=== PATIENT | female | born 1970 | race American Indian/Alaskan Native ===

== ENCOUNTER 2020-06-05 15:09 | Inpatient (IN) | payer OTHER ==
--- NOTE | 2020-06-05 17:50 | Emergency Department Report ---
ED Extremity Problem HPI - General Chief complaint: Extremity Injury, Lower Stated complaint: POSS BLOOD CLOT Time Seen by Provider: 06/05/20 17:01 Source: patient Mode of arrival: Ambulatory Limitations: No Limitations - History of Present Illness Initial comments: This is a 49-year-old female with no prior medical history who presents the ED today complaining of right inner thigh pain that initially began 2 days ago. Patient states over the past 2 days is gotten worse and she has noticed her thigh swelling and pain has worsened. Patient states that she went to urgent care today and was told to come to the ER to be evaluated for possible DVT. Patient denies any recent travel. She denies any injuries MD Complaint: extremity pain, extremity swelling Location: left, lower extremity (thigh) Severity scale (0 -10): 8 - Related Data Allergies Allergy/AdvReac Type Severity Reaction Status Date / Time No Known Allergies Allergy Unverified 06/05/20 15:26 ED Review of Systems ROS: Stated complaint: POSS BLOOD CLOT Other details as noted in HPI Comment: All other systems reviewed and negative ED Past Medical Hx - Past Medical History Previous Medical History?: No - Surgical History Past Surgical History?: No - Social History Smoking Status: Never Smoker Substance Use Type: Alcohol ED Physical Exam - General Limitations: No Limitations General appearance: alert, in no apparent distress - Head Head exam: Present: atraumatic, normocephalic - Eye Eye exam: Present: normal appearance - ENT ENT exam: Present: mucous membranes moist - Neck Neck exam: Present: normal inspection - Respiratory Respiratory exam: Present: normal lung sounds bilaterally. Absent: respiratory distress - Cardiovascular Cardiovascular Exam: Present: regular rate, normal rhythm. Absent: systolic murmur, diastolic murmur, rubs, gallop - GI/Abdominal GI/Abdominal exam: Present: soft, normal bowel sounds - Extremities Exam Extremities exam: Present: normal inspection - Expanded Lower Extremity Exam Left Hip exam: Present: normal inspection, full ROM Upper Leg exam: Present: tenderness (To palpation of the left inner inner thigh), swelling (Noted to the thigh and leg) Knee exam: Present: normal inspection - Back Exam Back exam: Present: normal inspection, full ROM. Absent: tenderness - Neurological Exam Neurological exam: Present: alert, oriented X3 - Psychiatric Psychiatric exam: Present: normal affect, normal mood - Skin Skin exam: Present: warm, dry, intact, normal color. Absent: rash ED Course Vital Signs 06/05/20 15:27 Temperature 98.6 F Pulse Rate 95 H Respiratory 18 Rate Blood Pressure 149/71 O2 Sat by Pulse 100 Oximetry - Reevaluation(s) Reevaluation #1: Patient was reevaluated at this time. Patient still complaining of pain. I discussed her Doppler studies finding with her. Morphine ordered for patient for pain, IVF ordered. CTA ordered and pending 06/05/20 20:43 Reevaluation #2: 06/05/20 21:54 Heparin drip protocol ordered. Admission orders placed. Patient leading to CT scan and then Jose to the [facility] Patient is comfortable laying in the ED bed - Consultations Consultation #1: 06/05/20 21:14 Hospitalist was contacted and made aware of the patient. Patient is to be admitted ED Medical Decision Making - Lab Data Result diagrams: 06/05/20 19:42 06/05/20 19:42 Laboratory Last Values WBC 11.3 K/mm3 (4.5-11.0) H 06/05/20 19:42 RBC 3.43 M/mm3 (3.65-5.03) L 06/05/20 19:42 Hgb 10.0 gm/dl (10.1-14.3) L 06/05/20 19:42 Hct 30.7 % (30.3-42.9) 06/05/20 19:42 MCV 89 fl (79-97) 06/05/20 19:42 MCH 29 pg (28-32) 06/05/20 19:42 MCHC 33 % (30-34) 06/05/20 19:42 RDW 15.7 % (13.2-15.2) H 06/05/20 19:42 Plt Count 185 K/mm3 (140-440) 06/05/20 19:42 Lymph % (Auto) 14.4 % (13.4-35.0) 06/05/20 19:42 Gilpin % (Auto) 9.2 % (0.0-7.3) H 06/05/20 19:42 Eos % (Auto) 2.5 % (0.0-4.3) 06/05/20 19:42 Baso % (Auto) 0.3 % (0.0-1.8) 06/05/20 19:42 Lymph # 1.6 K/mm3 (1.2-5.4) 06/05/20 19:42 Gilpin # 1.0 K/mm3 (0.0-0.8) H 06/05/20 19:42 Eos # 0.3 K/mm3 (0.0-0.4) 06/05/20 19:42 Baso # 0.0 K/mm3 (0.0-0.1) 06/05/20 19:42 Seg Neutrophils % 73.6 % (40.0-70.0) H 06/05/20 19:42 Seg Neutrophils # 8.3 K/mm3 (1.8-7.7) H 06/05/20 19:42 PT 13.4 Sec. (12.2-14.9) 06/05/20 19:42 INR 1.01 (0.87-1.13) 06/05/20 19:42 APTT 27.2 Sec. (24.2-36.6) 06/05/20 19:42 Sodium 136 mmol/L (137-145) L 06/05/20 19:42 Potassium 4.0 mmol/L (3.6-5.0) 06/05/20 19:42 Chloride 99.5 mmol/L (98-107) 06/05/20 19:42 Carbon Dioxide 21 mmol/L (22-30) L 06/05/20 19:42 Anion Gap 20 mmol/L 06/05/20 19:42 BUN 8 mg/dL (7-17) 06/05/20 19:42 Creatinine 0.8 mg/dL (0.6-1.2) 06/05/20 19:42 Estimated GFR > 60 ml/min 06/05/20 19:42 BUN/Creatinine Ratio 10 % 06/05/20 19:42 Glucose 113 mg/dL (65-100) H 06/05/20 19:42 Calcium 9.4 mg/dL (8.4-10.2) 06/05/20 19:42 Total Bilirubin 0.60 mg/dL (0.1-1.2) 06/05/20 19:42 AST 54 units/L (5-40) H 06/05/20 19:42 ALT 36 units/L (7-56) 06/05/20 19:42 Alkaline Phosphatase 117 units/L (35-129) 06/05/20 19:42 Total Protein 8.1 g/dL (6.3-8.2) 06/05/20 19:42 Albumin 4.0 g/dL (3.9-5) 06/05/20 19:42 Albumin/Globulin Ratio 1.0 % 06/05/20 19:42 - Radiology Data Radiology results: report reviewed, image reviewed Ordering Physician: DELONTE BAÑUELOS Date of Service: 06/05/20 Procedure(s): VL venous duplex LE LT Accession Number(s): [id number] cc: DELONTE BAÑUELOS DUPLEX DOPPLER LOWER EXTREMITY VEINS, LEFT INDICATION: pain /swelling thigh. Left thigh pain and swelling TECHNIQUE: Duplex doppler imaging was performed through the veins of the left lower extremity using venous compression and other maneuvers. COMPARISON: None available. FINDINGS: Common Femoral vein: Positive. Thrombus appears to extend into the distal left external iliac vein. Superficial Femoral vein: Negative. Popliteal vein: Negative. Calf veins: Negative. Additional findings: Mild subcutaneous edema.. IMPRESSION: Acute DVT identified within the distal left external iliac vein into the left common femoral vein. Signer Name: Jovanni Flores MD Signed: 06/05/2020 7:14 PM Workstation Name: [id number] Transcribed By: Dictated By: Jovanni Flores MD Electronically Authenticated By: Jovanni Flores MD Signed Date/Time: 06/05/201913 Critical care attestation.: If time is entered above; I have spent that time in minutes in the direct care of this critically ill patient, excluding procedure time. ED Disposition Clinical Impression: Acute DVT (deep venous thrombosis), Deep vein thrombosis of iliac vein of left lower extremity Disposition: OP ADMIT IP TO THIS HOSP Is pt being admited?: Yes Does the pt Need Aspirin: No Condition: Stable Referrals: PRIMARY CARE, [Primary Care Provider] - 3-5 Days
--- NOTE | 2020-06-05 19:18 | Vascular Lab Report ---
DUPLEX DOPPLER LOWER EXTREMITY VEINS, LEFT INDICATION: pain /swelling thigh. Left thigh pain and swelling TECHNIQUE: Duplex doppler imaging was performed through the veins of the left lower extremity using venous compr ession and other maneuvers. COMPARISON: None available. FINDINGS: Common Femoral vein: Positive. Thrombus appears to extend into the distal left external iliac vein. Superficial Femoral vein: Negative. Popliteal vein: Negative. Calf veins: Negative. Additional findings: Mild subcutaneous edema.. IMPRESSION: Acute DVT identified within the distal left external iliac vein into the left common femoral vein. Signer Name: Jovanni Flores MD Signed: 06/05/2020 7:14 PM Workstation Name: [id number]
[2020-06-05 20:11] LABS: Basophils % (Auto) 0.3 % (0.0-1.8); Eosinophils # (Auto) 0.3 K/mm3 (0.0-0.4); Eosinophils % (Auto) 2.5 % (0.0-4.3); Hematocrit 30.7 % (30.3-42.9); Lymphocytes # (Auto) 1.6 K/mm3 (1.2-5.4); Lymphocytes % (Auto) 14.4 % (13.4-35.0); Mean Corpuscular HGB Conc 33 % (30-34); Mean Corpuscular Volume 89 fl (79-97); Monocytes % (Auto) 9.2 % (0.0-7.3); Platelet Count 185 K/mm3 (140-440); Red Blood Count 3.43 M/mm3 (3.65-5.03); Red Cell Distribution Width 15.7 % (13.2-15.2)
[2020-06-05] MEDS ORDERED: MORPHINE 2 MG/1 ML INJ IV ONE (20:15)
[2020-06-05 20:21] LABS: INR 1.01 (0.87-1.13)
[2020-06-05 20:22] LABS: Partial Thromboplastin Time 27.2 Sec. (24.2-36.6)
[2020-06-05 20:35] LABS: Alanine Aminotransferase 36 units/L (7-56); BUN/Creatinine Ratio 10; Blood Urea Nitrogen 8 mg/dL (7-17); Calcium 9.4 mg/dL (8.4-10.2); Hemolysis Index 20
[2020-06-05] MEDS ORDERED: SODIUM CHLORIDE 0.9% 1000 ML 1,000 ML IV ONE (21:12)
[2020-06-05] MEDS ORDERED: HEPARIN 10,000 UNITS/10 ML VIAL IV ONE (21:49)
[2020-06-05] MEDS ORDERED: ACETAMINOPHEN 325 MG TAB PO PRN (22:10)
[2020-06-05] MEDS ORDERED: MAGNESIUM HYDROXIDE (MOM) ORAL LIQD UDC PO PRN (22:10)
[2020-06-05] MEDS ORDERED: ONDANSETRON 4 MG/2 ML INJ IV PRN (22:10)
--- NOTE | 2020-06-05 22:23 | History and Physical Report ---
History of Present Illness Date of examination: 06/05/20 Date of admission: 06/05/20 21:58 Chief complaint: Left thigh pain History of present illness: 49-year-old female with no significant past medical history presents to the emergency room today complaining of left thigh pain which has been ongoing for about 2 days. She denies any fall or trauma to the time. Thigh is gotten swollen and become more painful today and therefore reports to the emergency room. She also indicates that she has had some mild shortness of breath and chest discomfort. She denies any fever or chills, no cough, no nausea vomiting, no headache or dizziness, no hematuria or dysuria. Patient presented to an urgent care facility earlier today and was encouraged to report to the emergency room for further evaluation. She denies any recent travel. 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 Work-up in the emergency room today reveals DVT of the left lower extremity- acute DVT extending from the distal left external iliac vein into the common femoral vein. CT angiogram also reveals pulmonary embolism. She has been started on heparin drip. Past History Past Medical History: No medical history Past Surgical History: No surgical history Social history: alcohol abuse (Occasional Alcohol) Family history: no significant family history Medications and Allergies Allergies Allergy/AdvReac Type Severity Reaction Status Date / Time No Known Allergies Allergy Verified 06/05/20 22:20 Active Meds: Active Medications Acetaminophen (Tylenol) 650 mg PO Q4H PRN PRN Reason: Pain MILD(1-3)/Fever >100.5/ESTRADA Magnesium Hydroxide (Milk Of Magnesia) 30 ml PO Q4H PRN PRN Reason: Constipation Morphine Sulfate (Morphine) 2 mg IV Q4H PRN PRN Reason: Pain, Moderate (4-6) Ondansetron HCl (Zofran) 4 mg IV Q8H PRN PRN Reason: Nausea And Vomiting Sodium Chloride (Sodium Chloride Flush Syringe 10 Ml) 10 ml IV BID DIMITRIOS Sodium Chloride (Sodium Chloride Flush Syringe 10 Ml) 10 ml IV PRN PRN PRN Reason: LINE FLUSH Review of Systems Constitutional: no fever, no chills Ears, nose, mouth and throat: no nasal congestion, no sore throat Cardiovascular: no chest pain, no palpitations Respiratory: no cough, no shortness of breath Gastrointestinal: no abdominal pain, no nausea, no vomiting, no diarrhea Genitourinary Female: no pelvic pain, no flank pain, no dysuria Musculoskeletal: no neck pain, no low back pain Integumentary: no rash, no pruritis Neurological: no headaches, no confusion Psychiatric: no anxiety, no confusion Exam - Constitutional Vitals: Temp Pulse Resp BP Pulse Ox 98.6 F 95 H 18 149/71 100 06/05/20 15:27 06/05/20 15:27 06/05/20 15:27 06/05/20 15:27 06/05/20 15:27 General appearance: Present: no acute distress, well-nourished - EENT Eyes: Present: PERRL, EOM intact. Absent: scleral icterus ENT: hearing intact, clear oral mucosa, dentition normal - Neck Neck: Present: supple, normal ROM - Respiratory Respiratory effort: normal Respiratory: bilateral: CTA - Cardiovascular Rhythm: regular Heart Sounds: Present: S1 & S2. Absent: gallop, systolic murmur, diastolic murmur, rub - Extremities Extremities: no ischemia, pulses intact, pulses symmetrical, No edema, Full ROM Peripheral Pulses: within normal limits - Abdominal General gastrointestinal: Present: soft, non-tender, non-distended, normal bowel sounds. Absent: mass - Integumentary Integumentary: Present: clear, warm, dry - Musculoskeletal Musculoskeletal: strength equal bilaterally, other (Left medial thigh tenderness with mild swelling) - Psychiatric Psychiatric: appropriate mood/affect, intact judgment & insight, memory intact, cooperative - Neurologic Neurologic: CNII-XII intact, no focal deficits, moves all extremities Results - Labs CBC & Chem 7: 06/05/20 22:27 06/05/20 19:42 Labs: Abnormal lab results 06/05/20 06/05/20 Range/Units 19:42 19:42 WBC 11.3 H (4.5-11.0) K/mm3 RBC 3.43 L (3.65-5.03) M/mm3 Hgb 10.0 L (10.1-14.3) gm/dl RDW 15.7 H (13.2-15.2) % Whitman % (Auto) 9.2 H (0.0-7.3) % Whitman # 1.0 H (0.0-0.8) K/mm3 Seg Neutrophils % 73.6 H (40.0-70.0) % Seg Neutrophils # 8.3 H (1.8-7.7) K/mm3 Sodium 136 L (137-145) mmol/L Carbon Dioxide 21 L (22-30) mmol/L Glucose 113 H (65-100) mg/dL AST 54 H (5-40) units/L Assessment and Plan - Patient Problems (1) Deep vein thrombosis of iliac vein of left lower extremity Current Visit: Yes Status: Acute (2) Full code status Current Visit: Yes Status: Acute
[2020-06-05 22:52] LABS: Hematocrit 30.2 % (30.3-42.9); Hemoglobin 9.6 gm/dl (10.1-14.3)
[2020-06-05 23:15] LABS: INR 1.07 (0.87-1.13)
[2020-06-05 23:16] LABS: Partial Thromboplastin Time 25.3 Sec. (24.2-36.6)
--- NOTE | 2020-06-05 23:26 | Cat Scan Report ---
CTA ABDOMEN, PELVIS, AND LOWER EXTREMITIES INDICATION / CLINICAL INFORMATION: Follow-up DVT seen on ultrasound. TECHNIQUE: Axial CT images were obtained through the abdomen, pelvis and lower extremities after injection of IV contrast. 3 plane MIP / 3D reconstructions were produced. All CT scans at this location are performe d using CT dose reduction for ALARA by means of automated exposure control. COMPARISON: None available. FINDINGS: CTA ABDOMEN: Abdominal Aorta: No significant abnormality. Celiac Artery: No significant abnormality. Superior Mesenteric Artery: No significant abnormality. Right Renal Artery: No significant abnormality. Left Renal Artery: No significant abnormality. Inferior Mesenteric Artery: No significant abnormality. CTA PELVIS: RIGHT: - Common Iliac Artery: No significant abnormality. - Internal Iliac Artery: No significant abnormality. - External Iliac Artery: No significant abnormality. LEFT: - Common Iliac Artery: No significant abnormality. - Internal Iliac Artery: No significant abnormality. - External Iliac Artery: No significant abnormality. CTA LOWER EXTREMITIES: RIGHT LOWER EXTREMITY: - Common Femoral Artery: No significant abnormality. - Superficial Femoral Artery: No significant abnormality. - Profunda Femoral Artery: No significant abnormality. - Popliteal Artery: No significant abnormality. - Anterior Tibial Artery: No significant abnormality. - Tibioperoneal Trunk: No significant abnormality. - Posterior Tibial Artery: No significant abnormality. - Peroneal Artery: No significant abnormality. - Ankle runoff: Three vessel. LEFT LOWER EXTREMITY: - Common Femoral Artery: No significant abnormality. - Superficial Femoral Artery: No significant abnormality. - Profunda Femoral Artery: No significant abnormality. - Popliteal Artery: No significant abnormality. - Anterior Tibial Artery: No significant abnormality. - Tibioperoneal Trunk: No significant abnormality. - Posterior Tibial Artery: No significant abnormality. - Peroneal Artery: No significant abnormality. - Ankle runoff: Three vessel. NONTARGET STRUCTURES: ABDOMEN:No significant abnormality. PELVIS:Markedly enlarged uterus most consistent with uterine fibroids LOWER EXTREMITIES:Marked edema of the left lower extremity is present. SKELETAL: No significant abnormality. ADDITIONAL FINDINGS: Marked edema of the left external iliac vein and left common femoral vein IMPRESSION: 1. Normal abdominal aorta and runoff as noted 2. Marked edema left external iliac vein and left common femoral vein consistent with deep venous thr ombosis as demonstrated on the previous ultrasound 3. Markedly enlarged uterus Signer Name: Tyler Dixon MD Signed: 06/05/2020 11:21 PM Workstation Name: [id number]
--- NOTE | 2020-06-05 23:32 | Cat Scan Report ---
CTA CHEST WITH IV CONTRAST INDICATION / CLINICAL INFORMATION: P.E. PROTOCOL!!! Patient is positive for a DVT.. TECHNIQUE: Axial CT images were obtained through the chest after injection of 134 cc of Omnipaque 350 milligram percent IV contrast. 3 plane MIP and/or 3D reconstructions were produced. All CT scans at this locati on are performed using CT dose reduction for ALARA by means of automated exposure control. COMPARISON: None available. FINDINGS: PULMONARY ARTERIES: Filling defects present lingular segment left upper lobe as well as right lower l obe. THORACIC AORTA: No significant abnormality. HEART: No significant abnormality. CORONARY ARTERIES: No significant calcification. PLEURA: No pleural effusion. No pneumothorax. LYMPH NODES: No significant adenopathy. LUNGS: Minimum patchy parenchymal changes peripheral aspect right upper lobe ADDITIONAL FINDINGS: Fluid-filled esophagus is present SKELETAL STRUCTURES: No significant osseous abnormality. IMPRESSION: 1. Pulmonary embolic disease as noted. 2. Minimum parenchymal changes right upper lobe, atelectasis is a concern CRITICAL RESULT: Time of Discovery: 2210 hours Time of Communication: 2230 hours Licensed Practitioner Receiving Report: Luis MARTEL was notified of these findings personally by Dr. Dixon Read Back Performed: Yes. Signer Name: Tyler Dixon MD Signed: 06/05/2020 11:28 PM Workstation Name: [id number]
[2020-06-06] MEDS ORDERED: ONDANSETRON 4 MG/2 ML INJ ONE (00:43)
[2020-06-06] MEDS ORDERED: MORPHINE 2 MG/1 ML INJ ONE (00:44)
[2020-06-06] MEDS: MORPHINE 2 MG/1 ML INJ IV PRN ×4 (00:45→13:29)
[2020-06-06] MEDS ORDERED: HEPARIN 5,000 UNIT/1 ML VIAL ONE (00:51)
[2020-06-06 06:26] LABS: Basophils % (Auto) 0.3 % (0.0-1.8); Eosinophils # (Auto) 0.3 K/mm3 (0.0-0.4); Eosinophils % (Auto) 2.4 % (0.0-4.3); Hematocrit 27.6 % (30.3-42.9); Hemoglobin 8.8 gm/dl (10.1-14.3); Lymphocytes # (Auto) 1.8 K/mm3 (1.2-5.4); Lymphocytes % (Auto) 15.7 % (13.4-35.0); Mean Corpuscular HGB Conc 32 % (30-34); Mean Corpuscular Volume 89 fl (79-97); Monocytes # (Auto) 1.1 K/mm3 (0.0-0.8); Monocytes % (Auto) 9.3 % (0.0-7.3); Platelet Count 171 K/mm3 (140-440); Red Blood Count 3.08 M/mm3 (3.65-5.03); Red Cell Distribution Width 15.5 % (13.2-15.2)
[2020-06-06 06:37] LABS: INR 1.13 (0.87-1.13)
[2020-06-06 06:42] LABS: BUN/Creatinine Ratio 8; Blood Urea Nitrogen 6 mg/dL (7-17); Calcium 8.7 mg/dL (8.4-10.2); Hemolysis Index 3
[2020-06-06] MEDS: HEPARIN/ 0.45% NACL DRIP 25,000 UNIT/500 ML BAG IV SCH (11:12)
--- NOTE | 2020-06-06 17:14 | Consultation ---
History of Present Illness - Reason for Consult Consult date: 06/06/20 Left Lower Extremity DVT with PE Requesting physician: JOY PRIDE - History of Present Illness The patient is a 49-year-old female who states that Tuesday of this week she was performing jumping jacks as part of a jumping amira challenge when she noted pain in her left leg that she attributed to a possible pulled muscle. She states that she went to work later that day however when she woke up Tuesday she was experiencing worse pain and noticed some swelling. She states the pain worsened as well as the swelling and what her sister, who is a critical care physician manufacturing assistant, saw her on Tuesday she suggested that she present to the emergency department. The patient presented to the emergency department on with severe swelling and pain of the left lower extremity and was found to have a DVT of the left lower extremity as well as bilateral pulmonary emboli in the segmental branches. The left lower extremity duplex suggests that the DVT involves the external iliac vein as well as the common femoral vein and superficial femoral vein. There is also thrombus at the saphenofemoral junction as well as the saphenous popliteal junction. This was suggested the thrombus is likely in the popliteal vein and possibly the tibial veins however the energy and conservation technician suggest that the study was technically difficult likely secondary to the amount of edema from the patient's extensive DVT. The patient complains of continued pain and swelling despite elevation here in the hospital. She denies any shortness of breath or chest pain. She denies any history of clots, miscarriages, recent weight loss, or prolonged travel or bedrest. She denies any history of hematemesis, hemoptysis, melena, or bright red blood per rectum. She does have heavy menstrual bleeding secondary to a history of uterine fibroids and takes iron on a daily basis to treat her chronic anemia. She has no additional complaints at this time. Past History Past Medical History: No medical history, other (Uterine fibroids) Past Surgical History: No surgical history Social history: alcohol abuse (Occasional Alcohol) Family history: no significant family history Medications and Allergies Allergies Allergy/AdvReac Type Severity Reaction Status Date / Time No Known Allergies Allergy Verified 06/05/20 22:20 Active Meds: Active Medications Acetaminophen (Tylenol) 650 mg PO Q4H PRN PRN Reason: Pain MILD(1-3)/Fever >100.5/ESTRADA Heparin Sodium/Sodium Chloride (Heparin/ 0.45% Nacl-25,000 Unit/500 Ml) 25,000 unit in 500 mls @ 23 mls/hr IV TITR DIMITRIOS; Protocol Last Admin: 06/06/20 11:12 Dose: 1,150 units/hr, 23 mls/hr Documented by: Magnesium Hydroxide (Milk Of Magnesia) 30 ml PO Q4H PRN PRN Reason: Constipation Morphine Sulfate (Morphine) 2 mg IV Q4H PRN PRN Reason: Pain, Moderate (4-6) Last Admin: 06/06/20 13:29 Dose: 2 mg Documented by: Ondansetron HCl (Zofran) 4 mg IV Q8H PRN PRN Reason: Nausea And Vomiting Last Admin: 06/06/20 00:45 Dose: 4 mg Documented by: Sodium Chloride (Sodium Chloride Flush Syringe 10 Ml) 10 ml IV BID DIMITRIOS Last Admin: 06/06/20 11:14 Dose: 10 ml Documented by: Sodium Chloride (Sodium Chloride Flush Syringe 10 Ml) 10 ml IV PRN PRN PRN Reason: LINE FLUSH Review of Systems All systems: negative Exam - Constitutional Vitals: Temp Pulse Resp BP Pulse Ox 98.2 F 84 16 116/62 98 06/06/20 11:40 06/06/20 11:40 06/06/20 11:40 06/06/20 11:40 06/06/20 11:40 General appearance: Present: no acute distress - Neck Neck: Present: supple - Respiratory Respiratory effort: normal - Cardiovascular Rhythm: regular - Extremities Extremities: no ischemia, pulses intact Extremity abnormal: edema (Left lower extremity extending from the foot to the thigh) - Abdominal General gastrointestinal: Present: soft, non-tender, non-distended - Rectal Rectal Exam: deferred Results - Labs CBC & Chem 7: 06/06/20 05:42 06/06/20 05:42 Labs: Abnormal lab results 06/05/20 06/05/20 06/05/20 Range/Units 19:42 19:42 22:27 WBC 11.3 H (4.5-11.0) K/mm3 RBC 3.43 L (3.65-5.03) M/mm3 Hgb 10.0 L 9.6 L (10.1-14.3) gm/dl Hct 30.2 L (30.3-42.9) % RDW 15.7 H (13.2-15.2) % Ada % (Auto) 9.2 H (0.0-7.3) % Ada # 1.0 H (0.0-0.8) K/mm3 Seg Neutrophils % 73.6 H (40.0-70.0) % Seg Neutrophils # 8.3 H (1.8-7.7) K/mm3 Sodium 136 L (137-145) mmol/L Carbon Dioxide 21 L (22-30) mmol/L BUN (7-17) mg/dL Glucose 113 H (65-100) mg/dL AST 54 H (5-40) units/L 06/06/20 06/06/20 Range/Units 05:42 05:42 WBC 11.7 H (4.5-11.0) K/mm3 RBC 3.08 L (3.65-5.03) M/mm3 Hgb 8.8 L (10.1-14.3) gm/dl Hct 27.6 L (30.3-42.9) % RDW 15.5 H (13.2-15.2) % Ada % (Auto) 9.3 H (0.0-7.3) % Ada # 1.1 H (0.0-0.8) K/mm3 Seg Neutrophils % 72.3 H (40.0-70.0) % Seg Neutrophils # 8.4 H (1.8-7.7) K/mm3 Sodium 136 L (137-145) mmol/L Carbon Dioxide 21 L (22-30) mmol/L BUN 6 L (7-17) mg/dL Glucose 124 H (65-100) mg/dL AST (5-40) units/L - Imaging and Cardiology CT scan - chest: image reviewed CT scan - pelvis: image reviewed US - abdomen: image reviewed Venous US: image reviewed Assessment and Plan The patient is a 49-year-old female with bilateral pulmonary emboli and an extensive left lower extremity DVT. She has significant swelling and pain despite anticoagulation elevation of the leg. It is unlikely that this will improve significantly with anticoagulation and prolonged elevation. I believe the patient has more thrombus then was identified on the study. I believe the patient with benefit from percutaneous mechanical thrombectomy of her left lower extremity and possibly stenting of the left iliac vein as this may be secondary to May Thurner syndrome. She would also require placement of an inferior vena cava filter prior to performing the thrombectomy to prevent pulmonary emboli during the procedure. This will be retrieved within 2 to 3 months of placement. Additionally given the bilateral pulmonary emboli she requires a minimum of 6 months of anticoagulation likely with DOAC such as Eliquis. I discussed the findings and plan with the patient as well as her sister (by phone) who expressed understanding and have agreed to proceed.
--- NOTE | 2020-06-06 18:12 | Progress Note ---
Assessment and Plan - Patient Problems (1) Acute DVT (deep venous thrombosis) Current Visit: Yes Status: Acute Plan to address problem: Patient with acute extensive DVT. Unlikely to heal from anticoagulation and elevation. Consult vascular for possible thrombectomy. Continue aggressive pain control elevation. Continue heparin drip pending vascular intervention. Patient denies strong family history of DVT or PE. Will still need to be worked up for hypercoagulable state upon discharge. (2) Deep vein thrombosis of iliac vein of left lower extremity Current Visit: Yes Status: Acute (3) Full code status Current Visit: Yes Status: Acute (4) Pulmonary embolism Current Visit: Yes Status: Acute Plan to address problem: Patient with bilateral pulmonary embolism. Secondary to DVT. Continue heparin drip. Upon discharge will change patient to Eliquis with follow-up CT angiogram 6 months then a year if requires continued treatment. Subjective Date of service: 06/06/20 Principal diagnosis: Pulmonary embolism DVT. Interval history: Patient 49-year-old female who presents with left thigh pain x2 days. Patient had painful swelling left thigh presented with shortness of breath work-up found patient to have extensive DVT in left lower extremity. From the distal iliac to common femoral vein. Patient placed on heparin drip. This morning patient still has significant left thigh pain. Objective - Constitutional Vitals: Vital Signs - 12hr 06/06/20 06/06/20 11:40 16:04 Temperature 98.2 F 101.2 F H Pulse Rate 84 98 H Respiratory 16 16 Rate Blood Pressure 116/62 119/65 O2 Sat by Pulse 98 99 Oximetry General appearance: Present: no acute distress, well-nourished - EENT Eyes: PERRL, EOM intact ENT: hearing intact, clear oral mucosa Ears: bilateral: normal - Neck Neck: supple, normal ROM - Respiratory Respiratory effort: normal Respiratory: bilateral: CTA - Breasts Breasts: normal - Cardiovascular Rhythm: regular Heart Sounds: Present: S1 & S2. Absent: gallop, rub Extremities: pulses intact, No edema, normal color, Full ROM Extremity abnormal: other (Left thigh edematous firm painful to palpation. Almost twice the size as the other thigh.) - Gastrointestinal General gastrointestinal: Present: soft, non-tender, non-distended, normal bowel sounds - Genitourinary Female genitourinary: normal - Integumentary Integumentary: clear, warm, dry - Musculoskeletal Musculoskeletal: 1, strength equal bilaterally - Neurologic Neurologic: moves all extremities - Psychiatric Psychiatric: memory intact, appropriate mood/affect, intact judgment & insight - Labs CBC & Chem 7: 06/06/20 05:42 06/06/20 05:42 Labs: Abnormal lab results 06/05/20 06/05/20 06/05/20 Range/Units 19:42 19:42 22:27 WBC 11.3 H (4.5-11.0) K/mm3 RBC 3.43 L (3.65-5.03) M/mm3 Hgb 10.0 L 9.6 L (10.1-14.3) gm/dl Hct 30.2 L (30.3-42.9) % RDW 15.7 H (13.2-15.2) % [place] % (Auto) 9.2 H (0.0-7.3) % [place] # 1.0 H (0.0-0.8) K/mm3 Seg Neutrophils % 73.6 H (40.0-70.0) % Seg Neutrophils # 8.3 H (1.8-7.7) K/mm3 Sodium 136 L (137-145) mmol/L Carbon Dioxide 21 L (22-30) mmol/L BUN (7-17) mg/dL Glucose 113 H (65-100) mg/dL AST 54 H (5-40) units/L 06/06/20 06/06/20 Range/Units 05:42 05:42 WBC 11.7 H (4.5-11.0) K/mm3 RBC 3.08 L (3.65-5.03) M/mm3 Hgb 8.8 L (10.1-14.3) gm/dl Hct 27.6 L (30.3-42.9) % RDW 15.5 H (13.2-15.2) % [place] % (Auto) 9.3 H (0.0-7.3) % [place] # 1.1 H (0.0-0.8) K/mm3 Seg Neutrophils % 72.3 H (40.0-70.0) % Seg Neutrophils # 8.4 H (1.8-7.7) K/mm3 Sodium 136 L (137-145) mmol/L Carbon Dioxide 21 L (22-30) mmol/L BUN 6 L (7-17) mg/dL Glucose 124 H (65-100) mg/dL AST (5-40) units/L
[2020-06-06] MEDS ORDERED: MORPHINE 4 MG/1 ML INJ IV PRN (18:27)
[2020-06-06] MEDS ORDERED: HEPARIN 10,000 UNITS/10 ML VIAL IV ONE (19:43)
[2020-06-07 02:51] LABS: Hematocrit 28.1 % (30.3-42.9); Hemoglobin 9.1 gm/dl (10.1-14.3)
[2020-06-07] MEDS: HEPARIN/ 0.45% NACL DRIP 25,000 UNIT/500 ML BAG IV SCH (05:51)
--- NOTE | 2020-06-07 09:07 | Progress Note ---
Assessment and Plan - Patient Problems (1) Acute DVT (deep venous thrombosis) Current Visit: Yes Status: Acute Plan to address problem: At present after further review CT scan and consultation with vascular. Appears that large uterine fibroid adjacent to vascular system causing clots from stasis. Clot will be lysed today. Would recommend WEASAND TRIMMER consult for possible hysterectomy and surgical intervention. Appreciate vascular consult. (2) Deep vein thrombosis of iliac vein of left lower extremity Current Visit: Yes Status: Acute (3) Full code status Current Visit: Yes Status: Acute (4) Pulmonary embolism Current Visit: Yes Status: Acute Plan to address problem: Patient with bilateral pulmonary embolism. Secondary to DVT. Continue heparin drip. Upon discharge will change patient to Eliquis with follow-up CT angiogram 6 months then a year if requires continued treatment. (5) Uterine fibroid Current Visit: Yes Status: Acute Plan to address problem: Large uterine fibroid as mentioned CT scan of the abdomen with compression on pelvic vasculature causing clotting. RELIABILITY TECHNOLOGIST consult as previously indicated. Subjective Date of service: 06/07/20 Principal diagnosis: Pulmonary embolism DVT. Interval history: Patient 49-year-old female who presents with left thigh pain x2 days. Patient had painful swelling left thigh presented with shortness of breath work-up found patient to have extensive DVT in left lower extremity. From the distal iliac to common femoral vein. Patient placed on heparin drip. Hospice course complicated by fever of 101 yesterday. Afebrile today denies sick contacts. Also spoke to vascular in detail. After further review of CT scan abdomen it was found that patient's fibroids were present on venous system causing significant clotting. Recommending hysterectomy as well. Scheduled to have lysis of clot today. Objective - Constitutional Vitals: Vital Signs - 12hr 06/06/20 06/07/20 21:38 05:14 Temperature 101.0 F H 98.8 F Pulse Rate 96 H 80 Respiratory 18 18 Rate Blood Pressure 108/58 119/64 O2 Sat by Pulse 94 99 Oximetry General appearance: Present: no acute distress, well-nourished - EENT Eyes: PERRL, EOM intact ENT: hearing intact, clear oral mucosa Ears: bilateral: normal - Neck Neck: supple, normal ROM - Respiratory Respiratory effort: normal Respiratory: bilateral: CTA - Breasts Breasts: normal - Cardiovascular Rhythm: regular Heart Sounds: Present: S1 & S2. Absent: gallop, rub Extremities: pulses intact, No edema, normal color, Full ROM - Gastrointestinal General gastrointestinal: Present: soft, non-tender, non-distended, normal bowel sounds - Genitourinary Female genitourinary: normal - Integumentary Integumentary: clear, warm, dry - Musculoskeletal Musculoskeletal: 1, strength equal bilaterally - Neurologic Neurologic: moves all extremities - Psychiatric Psychiatric: memory intact, appropriate mood/affect, intact judgment & insight - Labs CBC & Chem 7: 06/07/20 02:02 06/06/20 05:42 Labs: Abnormal lab results 06/06/20 06/07/20 06/07/20 Range/Units 18:53 02:02 02:02 Hgb 9.1 L (10.1-14.3) gm/dl Hct 28.1 L (30.3-42.9) % Heparin Anti-Xa Level < 0.10 L 0.25 L (0.3-0.7) U.I./ml
--- NOTE | 2020-06-07 12:47 | Event Note ---
Date: 06/07/20 CTA A/P was reviewed and uterus has multiple fibroids and is significantly enlarged. The uterus is compressing bilateral iliac veins as well as the distal IVC. There are multiple collateral veins throughout the pelvis which suggest this is a chronic compression. I discussed with the patient that she should undergo thrombolysis of her left leg DVT with placement of an IVC filter. She should then have a hysterectomy, to relieve the compression, during this hospitalization, or she will be at risk of rethrombosis. She expressed understanding and wishes to proceed. I contacted Dr. Benny Price and discussed the findings and plan with him as well. He will initiate the consult to FISHERY BIOLOGIST.
[2020-06-07] MEDS ORDERED: SODIUM CHLORIDE 0.9% 1000 ML 1,000 ML SHEATH SCH (13:15)
[2020-06-07] MEDS ORDERED: ACETAMINOPHEN 325 MG TAB PO PRN (13:15)
[2020-06-07] MEDS ORDERED: ONDANSETRON 4 MG/2 ML INJ IV PRN (13:15)
[2020-06-07] MEDS ORDERED: MORPHINE 4 MG/1 ML INJ IV PRN (13:15)
[2020-06-07] MEDS ORDERED: MORPHINE 2 MG/1 ML INJ IV PRN (13:15)
[2020-06-07] MEDS ORDERED: SODIUM CHLORIDE 0.9% 1000 ML 1,000 ML EKOSCLUMEN SCH (13:15)
[2020-06-07] MEDS ORDERED: SODIUM CHLORIDE 0.9% 1000 ML 1,000 ML IV SCH (13:30)
[2020-06-07] MEDS ORDERED: HEPARIN/NS 5000 UNIT/500ML 1,000 ML IR ONE (13:47)
[2020-06-07] MEDS ORDERED: HEPARIN 10,000 UNITS/10 ML VIAL ONE (13:47)
[2020-06-07] MEDS ORDERED: ALTEPLASE 2 MG INJ ONE (13:48)
[2020-06-07] MEDS ORDERED: WATER FOR INJ Sterile (PF) 10 ML ONE (13:48)
[2020-06-07] MEDS ORDERED: HEPARIN/ 0.45% NACL DRIP 25,000 UNIT/500 ML BAG SHEATH SCH (14:00)
[2020-06-07] MEDS ORDERED: ALTEPLASE 20 MG in SODIUM CHLORIDE 0.9% 500 ML 500 ML EKOSDLUMEN SCH (14:00)
[2020-06-07] MEDS ORDERED: SODIUM CHLORIDE 0.9% 500 ML 1,000 ML ONE (14:48)
[2020-06-07] MEDS ORDERED: HEPARIN/ 0.45% NACL DRIP 25,000 UNIT/500 ML BAG ONE (14:48)
--- NOTE | 2020-06-07 14:59 | Event Note ---
Date: 06/07/20 Called regarding paper gluing operator consultation for h/o fibroids this pt and advised she was going into surgery. Chart reviewed. No studies have indicated size of uterus or if fibroids are present. Would recommend pelvic sonogram for this reason as well as to evaluate the endometrial lining as thickness would indicate need for sampling to r/o malignancy. Full consultation to follow after pt seen and evaluated once in room after surgery.
[2020-06-07] MEDS ORDERED: LIDOCAINE (2%) 20 MG/1 ML VIAL 20 ML MDV INFILTRATI ONE (15:02)
[2020-06-07] MEDS: MIDAZOLAM 2 MG/2 ML INJ ONE ×2 (15:11→15:34)
[2020-06-07] MEDS: fentaNYL 100 MCG/2 ML INJ ONE ×2 (15:11→15:34)
[2020-06-07] MEDS ORDERED: MIDAZOLAM 2 MG/2 ML INJ ONE (16:22)
[2020-06-07] MEDS: HYDROmorphone 1 MG/1 ML INJ ONE (16:40)
[2020-06-07 16:58] LABS: INR 1.13 (0.87-1.13)
[2020-06-07 16:59] LABS: Fibrinogen 548 mg/dl (211-480); Partial Thromboplastin Time 37.8 Sec. (24.2-36.6)
--- NOTE | 2020-06-07 17:03 | Operative Report ---
Operative Report Operative Report: Date of Procedure: 06/07/2020 Pre-operative Diagnosis: Extensive Left Lower Extremity DVT Post-operative Diagnosis: Extensive Left Lower Extremity DVT with Extension of Thrombus into the Inferior Vena Cava Procedure(s): 1. Ultrasound-Guided Access Right Internal Jugular Vein 2. Diagnostic Inferior Venacavogram 3. Placement of Maribel Inferior Vena Cava Filter 4. Ultrasound-Guided Access Left Popliteal Vein 5. Diagnostic Left Lower Extremity Venogram 6. Placement of 106 x 50 cm EKOS Thrombolysis Catheter 7. Radiologic Supervision with Interpretation 8. Monitored Moderate Sedation (Total Anesthesia Time: 95 Minutes) Surgeon: Benny Ramirez M.D. Operations Lieutenant: None Anesthesia: 1% Lidocaine/Monitored Moderate Sedation Total Anesthesia Time: 95 Minutes EBL: Minimal Counts: Correct Complications: None Condition: Stable Specimen: None Indication: The patient is a 49-year-old female with a history of uterine fibroids who presented to the emergency department with left leg pain and swelling and was found to have an extensive left lower extremity DVT. She was also found to have multiple bilateral pulmonary emboli. CT scan of her abdomen pelvis revealed that her uterus was significantly enlarged and causing near total compression of the inferior vena cava which is likely the cause of her DVT. She is in need of thrombolysis of her left lower extremity to relieve her symptoms as well as inferior vena cava filter placement during the thrombolysis as well as for potential hysterectomy. She has been given the risk, benefits, and alternative procedures and consented to the procedure. Angiographic Findings: The inferior venacavogram revealed thrombus within the inferior vena cava extending to the level of L2. The IVC filter was placed at the level of L1 with slight anterior tilt likely secondary to distal thrombus however the filter did appear to fully deploy. The left lower extremity venogram revealed thrombus within the popliteal vein extending through the superficial femoral vein however this thrombus was not completely occlusive. There was occlusive thrombus within the common femoral vein. There was occlusive thrombus within the external iliac and common iliac vein which extended into the inferior vena cava. The treatment zone of the EKOS thrombolysis catheter extended from the distal popliteal vein to the distal inferior vena cava. Description of Procedure: The patient was brought into the cardiac cath technician and laid in supine position, after adequate sedation the patient was prepped and draped in normal sterile fashion. Ultrasound was used to identify the right common femoral vein and the overlying skin and soft tissue was anesthetized with lidocaine. A small stab incision was made and the 21-gauge micropuncture needle was used with ultrasound guidance to enter the right internal jugular vein. An 035 J-wire was advanced into the inferior vena cava under fluoroscopic guidance and a 5 [place] sheath was placed by Seldinger technique. A 5 [place] vertebral catheter was advanced into the mid inferior vena cava however due to the compression of the uterus and distal thrombus I was unable to advance the catheter any further. I performed a venogram, with a hand-injection, with the previously described findings. I reinserted the wire and remove the vertebral catheter leaving the wire in place. The filter delivery sheath was advanced, by Seldinger technique, into the inferior vena cava ensuring that it was below the level of the thrombus. The filter was then inserted and positioned proximal to the level of the thrombus. The delivery sheath was withdrawn deploying the filter in place at the body of L1, above the level of the thrombus and with slight anterior tilt. I removed the delivery sheath and manual pressure was held on the neck incision until hemostasis was achieved. The neck incision was then dressed with Dermabond. The patient was then moved back to her hospital bed and then flipped into prone position. Her left popliteal fossa was then prepped and draped in normal sterile fashion. Ultrasound was used to identify the left popliteal vein and then the overlying skin and soft tissue was anesthetized with lidocaine. An 11 blade was used to make a small stab incision and then a 21-gauge micropuncture needle was used with ultrasound guidance to enter the left popliteal vein. A 0.018 micropuncture wire was advanced to the vein and after removing the needle the micropuncture sheath was advanced into the vein by Seldinger technique. I removed the wire and inner dilator and then advanced a 0.035 J-wire into the vein. I removed the micropuncture sheath and inserted a 6 [place] sheath by Seldinger technique. I performed a left lower extremity venogram through the 6 [place] sheath with the previously described findings. I then advanced a vertebral catheter and the J-wire into the left common femoral vein and pe rformed a venogram with the previously described findings. I advanced the catheter and wire into the external iliac vein as well as the left common iliac vein and performed additional venograms with the previously described findings. I then advanced the J-wire into the inferior vena cava and remove the vertebral catheter. I advanced the EKOS thrombolysis catheter into the distal inferior vena cava by Seldinger technique. I removed the J-wire and then inserted the ultrasound catheter. I then primed the drug port with 4 mg of TPA and primed the coolant port with 3000 units of heparin as well as priming the sheath with 2000 units of heparin. I secured the sheath and catheter in position with a 0 silk stitch and then dressed the catheter and sheath with sterile dressings. The patient tolerated the procedure well. All counts were correct. The patient was taken to the intensive care unit in stable condition.
--- NOTE | 2020-06-07 20:01 | Consultation ---
History of Present Illness Consult date: 06/07/20 Requesting physician: JOY PRIDE Reason for consult: menorrhagia, other (fibroid uterus) History of present illness: Pt is a 49 y/o admitted and diagnosed with bilaterial PE and extensive lower ext DVT. Pt was noted on CT studies to have an enlarged uterus and paintings conservator was consulted for evaluation as she had given h/o fibroids and heavy periods. Pt states she was first told she had fibroid last year at her annual exam( she could not remember the provider) but state she was sure the fibroids were not as large as they are now. She was treated with blood transfusion and a Bejou Henary last month or month prior and states she did have a sonogram at this time as well as a blood transfusion. Review of sonogram done at [facility] on 01/26/2020 was read as uterus measuring 16.8x9.5x14.7cm with multiple fibroids noted and largest measuring 7.1x7.9x7.6cm and 4.2x4.9x4.7 cm).The endometrial stripe was not seen due to the fibroids being present and MRI was recommended. Pt underwent CT of abdomen and pelvis without contrast on 01/26/2020 and it was read as follows: "markedly enlarged lobulated uteruts presumbly fibroid uterus extending to the abdomen. Lieomyosarcoma cannot be excluded in this unenhanced study." When discharged she was to f/u with paintings conservator outpatient. Pt states that she did not f/u with paintings conservator due to having no coverage at this time. States menses was last week and was heavy as usual but that she also has spotting after period has ended which she has now. States periods have always been heavy and that she has not noticed a change in the flow over the last year except the spotting that after the menstrual period has ended. I d/w that the rapid growth of the fibroids, as per her history as there are not studies for comparison, and the intermenstrual spotting given her age are co ncerning and that an evaluation of both the cervix(via a pap to r/o cervical cancer/ dysplasia) and sampling of the endometrium to r/o endometrial cancer are needed prior to removal of the uterus to be sure the appropriate procedure is performed. I also stressed to pt that an enlarged uterus and fibroids do not usually cause DVTs. Pt does want the uterus removed and has had a BTL and does not want to maintain fertility. I d/w the importance of being sure her paintings conservator evaluation is completed and that she is fully anticoagulated and stable enough to undergo the above stated procedures. She expressed understanding and state no questions at this time.She has not had any prior treatments for the fibroids. Past History Past Medical History: other (fibroid uterus) Past Surgical History: section (times 3), other (BTL) INBOUND CUSTOMER SERVICE AGENT History: other (no abnormal paps as per pt) Medications and Allergies Allergies Allergy/AdvReac Type Severity Reaction Status Date / Time No Known Allergies Allergy Verified 06/05/20 22:20 Active Meds: Active Medications Acetaminophen (Tylenol) 650 mg PO Q6H PRN PRN Reason: Pain, Mild (1-3) Acetaminophen/Hydrocodone Bitart (Norman 5/325) 2 each PO Q6H PRN PRN Reason: Pain, Moderate (4-6) Sodium Chloride (Nacl 0.9% 1000 Ml) 1,000 mls @ 30 mls/hr IV DIRECT DIMITRIOS Last Admin: 06/07/20 15:15 Dose: 200 mls Documented by: Alteplase, Recombinant 20 mg/ (Sodium Chloride) 500 mls @ 25 mls/hr EKOSDLUMEN DIRECT DIMITRIOS Last Admin: 06/07/20 18:20 Dose: 10 mls Documented by: Sodium Chloride (Nacl 0.9% 1000 Ml) 1,000 mls @ 30 mls/hr SHEATH DIRECT DIMITRIOS Sodium Chloride (Nacl 0.9% 1000 Ml) 1,000 mls @ 35 mls/hr EKOSCLUMEN DIRECT DIMITRIOS Last Admin: 06/07/20 18:20 Dose: 15 mls Documented by: Heparin Sodium/Sodium Chloride (Heparin/ 0.45% Nacl-25,000 Unit/500 Ml) 25,000 unit in 500 mls @ 10 mls/hr SHEATH DIRECT DIMITRIOS; Protocol Last Admin: 06/07/20 18:20 Dose: 5 mls Documented by: Magnesium Hydroxide (Milk Of Magnesia) 30 ml PO Q4H PRN PRN Reason: Constipation Morphine Sulfate (Morphine) 4 mg IV Q4H PRN PRN Reason: Pain , Severe (7-10) Morphine Sulfate (Morphine) 2 mg IV Q4H PRN PRN Reason: Pain, Moderate (4-6) Ondansetron HCl (Zofran) 4 mg IV Q8H PRN PRN Reason: Nausea And Vomiting Sodium Chloride (Sodium Chloride Flush Syringe 10 Ml) 10 ml IV BID DIMITRIOS Last Admin: 06/07/20 10:09 Dose: 10 ml Documented by: Sodium Chloride (Sodium Chloride Flush Syringe 10 Ml) 10 ml IV PRN PRN PRN Reason: LINE FLUSH - Vital Signs Vital signs: Vital Signs Temp Pulse Resp BP Pulse Ox 98.6 F 95 H 18 149/71 100 06/05/20 15:27 06/05/20 15:27 06/05/20 15:27 06/05/20 15:27 06/05/20 15:27 Temp Pulse Resp BP Pulse Ox 98.9 F 80 20 122/67 100 06/07/20 19:55 06/07/20 12:59 06/07/20 12:59 06/07/20 12:59 06/07/20 12:59 - Physical Exam Lungs: Positive: Normal air movement Abdomen: Positive: normal appearance, soft, mass (palpated several cm ABOVE the umbilicus extending almost to the xiphoid). Negative: distention, tenderness Genitourinary (Female): Positive: other (deferred as pt is not bleeding and was in pain from procedure performed today ) Results Result Diagrams: 06/07/20 19:24 06/07/20 19:24 Abnormal lab results 06/07/20 06/07/20 06/07/20 Range/Units 02:02 02:02 08:25 Hgb 9.1 L (10.1-14.3) gm/dl Hct 28.1 L (30.3-42.9) % APTT (24.2-36.6) Sec. Fibrinogen (211-480) mg/dl Heparin Anti-Xa Level 0.25 L 0.13 L (0.3-0.7) U.I./ml 06/07/20 Range/Units 15:47 Hgb (10.1-14.3) gm/dl Hct (30.3-42.9) % APTT 37.8 H (24.2-36.6) Sec. Fibrinogen 548 H (211-480) mg/dl Heparin Anti-Xa Level < 0.10 L (0.3-0.7) U.I./ml All other labs normal. Assessment and Plan - Patient Problems (1) Acute DVT (deep venous thrombosis) Current Visit: Yes Status: Acute Plan to address problem: -treatment as per vascular and primary teams (2) Deep vein thrombosis of iliac vein of left lower extremity Current Visit: Yes Status: Acute Plan to address problem: treatmet as per primary and vascular teams (3) Pulmonary embolism Current Visit: Yes Status: Acute Plan to address problem: -treatment as per primary and vascular teams (4) Uterine fibroid Current Visit: Yes Status: Acute Plan to address problem: - I d/w that as per her history seems as if the abdominal mass has enlarged over a short period of time which is not characteristic of normal fibroid which usually grow slowly over time. I d/w that we will need to be sure she does not have a paintings conservator cancer prior to proceeding with any surgical procedure as that diagnosis would dictate which procedure she would need. At this time my recommendations are as follows: -fully anticoagulate and become stable for surgery from a pulmnonary and vascular standpoint -pap is recommended and at best at least a sample of the endmetrium prior to any surgical procedure to evaluated for uterine hyperplasia or malignancy as the endometirial stripe was not clearly seen on previous studies and patient has complaints of intermenstrual bleeding. -The diagnosis of leiomyosarcoma was listed in the differential diagnosis of the CT of abdomen and pelvis done at [facility] 01/2020 and an MRI was recommended at this time but not performed. -I would recommend a gynonc consultation to be sure pt has the optimal plan of care is developed prior to proceeding to surgery and the appropriate procedure can be performed. The uterus today on exam is clearly larger than 16cm which it measured just a few months ago and this is concerning. -Will continue to follow with the teams at this time.
[2020-06-07 20:14] LABS: Basophils # (Auto) 0.1 K/mm3 (0.0-0.1); Basophils % (Auto) 0.6 % (0.0-1.8); Eosinophils # (Auto) 0.3 K/mm3 (0.0-0.4); Eosinophils % (Auto) 1.6 % (0.0-4.3); Lymphocytes # (Auto) 1.6 K/mm3 (1.2-5.4); Lymphocytes % (Auto) 8.6 % (13.4-35.0); Mean Corpuscular HGB Conc 30 % (30-34); Mean Corpuscular Volume 88 fl (79-97); Monocytes # (Auto) 1.4 K/mm3 (0.0-0.8); Monocytes % (Auto) 7.7 % (0.0-7.3); Platelet Count 182 K/mm3 (140-440); Red Blood Count 3.65 M/mm3 (3.65-5.03); Red Cell Distribution Width 15.4 % (13.2-15.2)
[2020-06-07 20:15] LABS: Hematocrit 32.2 % (30.3-42.9); Hemoglobin 9.7 gm/dl (10.1-14.3)
[2020-06-07 20:35] LABS: Blood Urea Nitrogen 9 mg/dL (7-17); Calcium 9.2 mg/dL (8.4-10.2); Hemolysis Index 31
[2020-06-07 20:37] LABS: BUN/Creatinine Ratio 13
[2020-06-08] MEDS: HYDROcodone/ACETAMINOPHEN 5-325 MG TAB PO PRN ×2 (00:31→08:22)
[2020-06-08 01:47] LABS: Basophils % (Auto) 0.3 % (0.0-1.8); Eosinophils # (Auto) 0.1 K/mm3 (0.0-0.4); Hematocrit 27.9 % (30.3-42.9); Hemoglobin 8.9 gm/dl (10.1-14.3); Lymphocytes # (Auto) 1.1 K/mm3 (1.2-5.4); Lymphocytes % (Auto) 8.5 % (13.4-35.0); Mean Corpuscular HGB Conc 32 % (30-34); Mean Corpuscular Volume 89 fl (79-97); Monocytes # (Auto) 0.9 K/mm3 (0.0-0.8); Monocytes % (Auto) 7.1 % (0.0-7.3); Platelet Count 186 K/mm3 (140-440); Red Blood Count 3.12 M/mm3 (3.65-5.03); Red Cell Distribution Width 15.4 % (13.2-15.2)
[2020-06-08 02:38] LABS: Fibrinogen 190 mg/dl (211-480)
[2020-06-08 06:41] LABS: Basophils % (Auto) 0.2 % (0.0-1.8); Eosinophils # (Auto) 0.2 K/mm3 (0.0-0.4); Eosinophils % (Auto) 1.8 % (0.0-4.3); Hematocrit 24.5 % (30.3-42.9); Hemoglobin 7.9 gm/dl (10.1-14.3); Lymphocytes # (Auto) 1.1 K/mm3 (1.2-5.4); Lymphocytes % (Auto) 9.1 % (13.4-35.0); Mean Corpuscular HGB Conc 32 % (30-34); Mean Corpuscular Volume 89 fl (79-97); Monocytes # (Auto) 1.2 K/mm3 (0.0-0.8); Monocytes % (Auto) 9.3 % (0.0-7.3); Platelet Count 179 K/mm3 (140-440); Red Blood Count 2.76 M/mm3 (3.65-5.03); Red Cell Distribution Width 15.1 % (13.2-15.2)
[2020-06-08 07:02] LABS: BUN/Creatinine Ratio 12; Blood Urea Nitrogen 11 mg/dL (7-17); Calcium 8.7 mg/dL (8.4-10.2); Hemolysis Index 0
[2020-06-08 07:20] LABS: Fibrinogen TNR mg/dl (211-480)
--- NOTE | 2020-06-08 11:27 | Consultation ---
History of Present Illness - Reason for Consult Consult date: 06/08/20 Post Op ICU management Requesting physician: JOY RODRIGUEZ - History of Present Illness 49 y/o female with enlarged uterus, causing obstruction of venous drainage now with large DVT in lower ext requiring intervention. Went to woodworking shop laborer on yesterday for EKOS and returned here post-op. Stable overnight, no issues. Past History Past Medical History: No medical history, other (Uterine fibroids) Past Surgical History: No surgical history Social history: alcohol abuse (Occasional Alcohol) Family history: no significant family history Medications and Allergies Allergies Allergy/AdvReac Type Severity Reaction Status Date / Time No Known Allergies Allergy Verified 06/05/20 22:20 Active Meds: Active Medications Acetaminophen (Tylenol) 650 mg PO Q6H PRN PRN Reason: Pain, Mild (1-3) Acetaminophen/Hydrocodone Bitart ([place] 5/325) 2 each PO Q6H PRN PRN Reason: Pain, Moderate (4-6) Last Admin: 06/08/20 08:22 Dose: 2 each Documented by: Sodium Chloride (Nacl 0.9% 1000 Ml) 1,000 mls @ 30 mls/hr IV DIRECT DIMITRIOS Last Admin: 06/07/20 15:15 Dose: 200 mls Documented by: Alteplase, Recombinant 20 mg/ (Sodium Chloride) 500 mls @ 25 mls/hr EKOSDLUMEN DIRECT DIMITRIOS Last Infusion: 06/08/20 03:35 Dose: 12.5 mls/hr Documented by: Sodium Chloride (Nacl 0.9% 1000 Ml) 1,000 mls @ 30 mls/hr SHEATH DIRECT DIMITRIOS Sodium Chloride (Nacl 0.9% 1000 Ml) 1,000 mls @ 35 mls/hr EKOSCLUMEN DIRECT DIMITRIOS Last Admin: 06/07/20 18:20 Dose: 15 mls Documented by: Heparin Sodium/Sodium Chloride (Heparin/ 0.45% Nacl-25,000 Unit/500 Ml) 25,000 unit in 500 mls @ 10 mls/hr SHEATH DIRECT DIMITRIOS; Protocol Last Admin: 06/07/20 18:20 Dose: 5 mls Documented by: Magnesium Hydroxide (Milk Of Magnesia) 30 ml PO Q4H PRN PRN Reason: Constipation Morphine Sulfate (Morphine) 4 mg IV Q4H PRN PRN Reason: Pain , Severe (7-10) Last Admin: 06/07/20 21:01 Dose: 4 mg Documented by: Morphine Sulfate (Morphine) 2 mg IV Q4H PRN PRN Reason: Pain, Moderate (4-6) Ondansetron HCl (Zofran) 4 mg IV Q8H PRN PRN Reason: Nausea And Vomiting Sodium Chloride (Sodium Chloride Flush Syringe 10 Ml) 10 ml IV BID DIMITRIOS Last Admin: 06/07/20 21:00 Dose: 10 ml Documented by: Sodium Chloride (Sodium Chloride Flush Syringe 10 Ml) 10 ml IV PRN PRN PRN Reason: LINE FLUSH Review of Systems All systems: negative Exam - Constitutional Vitals: Temp Pulse Resp BP Pulse Ox 98.6 F 82 21 103/59 100 06/08/20 08:00 06/08/20 09:00 06/08/20 09:00 06/08/20 09:00 06/08/20 09:00 Results - Labs CBC & Chem 7: 06/08/20 06:25 06/08/20 06:25 Labs: Abnormal lab results 06/07/20 06/07/20 06/07/20 Range/Units 15:47 19:24 19:24 WBC 18.5 H (4.5-11.0) K/mm3 RBC (3.65-5.03) M/mm3 Hgb 9.7 L (10.1-14.3) gm/dl Hct (30.3-42.9) % MCH 27 L (28-32) pg RDW 15.4 H (13.2-15.2) % Lymph % (Auto) 8.6 L (13.4-35.0) % [place] % (Auto) 7.7 H (0.0-7.3) % Lymph # (1.2-5.4) K/mm3 [place] # 1.4 H (0.0-0.8) K/mm3 Seg Neutrophils % 81.5 H (40.0-70.0) % Seg Neutrophils # 15.1 H (1.8-7.7) K/mm3 APTT 37.8 H (24.2-36.6) Sec. Fibrinogen 548 H (211-480) mg/dl Heparin Anti-Xa Level < 0.10 L (0.3-0.7) U.I./ml Sodium 130 L (137-145) mmol/L Chloride 97.3 L (98-107) mmol/L Carbon Dioxide 14 L D (22-30) mmol/L Glucose (65-100) mg/dL 06/07/20 06/08/20 06/08/20 Range/Units 19:24 00:52 00:52 WBC 13.4 H (4.5-11.0) K/mm3 RBC 3.12 L (3.65-5.03) M/mm3 Hgb 8.9 L (10.1-14.3) gm/dl Hct 27.9 L (30.3-42.9) % MCH (28-32) pg RDW 15.4 H (13.2-15.2) % Lymph % (Auto) 8.5 L (13.4-35.0) % [place] % (Auto) (0.0-7.3) % Lymph # 1.1 L (1.2-5.4) K/mm3 [place] # 0.9 H (0.0-0.8) K/mm3 Seg Neutrophils % 83.1 H (40.0-70.0) % Seg Neutrophils # 11.1 H (1.8-7.7) K/mm3 APTT (24.2-36.6) Sec. Fibrinogen 574 H 190 L (211-480) mg/dl Heparin Anti-Xa Level 2.00 H < 0.10 L (0.3-0.7) U.I./ml Sodium (137-145) mmol/L Chloride (98-107) mmol/L Carbon Dioxide (22-30) mmol/L Glucose (65-100) mg/dL 06/08/20 06/08/20 06/08/20 Range/Units 06:25 06:25 06:25 WBC 12.4 H (4.5-11.0) K/mm3 RBC 2.76 L (3.65-5.03) M/mm3 Hgb 7.9 L (10.1-14.3) gm/dl Hct 24.5 L (30.3-42.9) % MCH (28-32) pg RDW (13.2-15.2) % Lymph % (Auto) 9.1 L (13.4-35.0) % [place] % (Auto) 9.3 H (0.0-7.3) % Lymph # 1.1 L (1.2-5.4) K/mm3 [place] # 1.2 H (0.0-0.8) K/mm3 Seg Neutrophils % 79.6 H (40.0-70.0) % Seg Neutrophils # 9.9 H (1.8-7.7) K/mm3 APTT (24.2-36.6) Sec. Fibrinogen (211-480) mg/dl Heparin Anti-Xa Level < 0.10 L (0.3-0.7) U.I./ml Sodium 134 L (137-145) mmol/L Chloride (98-107) mmol/L Carbon Dioxide 20 L (22-30) mmol/L Glucose 121 H (65-100) mg/dL - Imaging and Cardiology CT scan - chest: report reviewed, image reviewed Assessment and Plan 49 y/o female with extensive VTE in lungs and limbs, s/p EKOS to lower ext. 1. Pulm- Has VTE, small, and currently stable on room air. There is no contra indication pulmonary bazzi for surgery to remove mass from abdomen pelvis. She is as optimized as she will be from this standpoint. 2. Reviewed the OB note and appreciate their help, however I would not suggest starting oral anticoagulation until a definitive plan is set for her mass. From speaking with vascular, if this is not removed, she will clot off again. If FIELD SERVICE COORDINATOR/ONC is not available here may need to consider transfer as it appears removal of this is the only solution to her lower ext vascular issues. 3. Needs hypercoag work up and age/sex appropriate screening for malignancy. 4. Once catheters are out, stable for transfer out of unit.
--- NOTE | 2020-06-08 11:28 | Progress Note ---
Assessment and Plan - Patient Problems (1) Acute DVT (deep venous thrombosis) Current Visit: Yes Status: Acute Plan to address problem: At present after further review CT scan and consultation with vascular. Appears that large uterine fibroid adjacent to vascular system causing clots from stasis. Patient tolerated surgical intervention with lysis of adhesions. Did well minimal pain. Decreased girth of thigh. Spoke to vascular and pulmonology about timeliness of removing the uterus to prevent additional clotting. (2) Deep vein thrombosis of iliac vein of left lower extremity Current Visit: Yes Status: Acute Plan to address problem: Continue present anticoagulation heparin drip. (3) Full code status Current Visit: Yes Status: Acute (4) Pulmonary embolism Current Visit: Yes Status: Acute Plan to address problem: Patient with bilateral pulmonary embolism. Secondary to DVT. Continue heparin drip. Upon discharge will change patient to Eliquis with follow-up CT angiogram 6 months then a year if requires continued treatment. (5) Uterine fibroid Current Visit: Yes Status: Acute Plan to address problem: Thank you for evaluation from SUBSTANCE ABUSE RN. Recommend SUBSTANCE ABUSE RN ONC consult and full anti coagulation prior to hysterectomy. Subjective Date of service: 06/08/20 Principal diagnosis: Pulmonary embolism DVT. Interval history: Patient 49-year-old female who presents with left thigh pain x2 days. Patient had painful swelling left thigh presented with shortness of breath work-up found patient to have extensive DVT in left lower extremity. From the distal iliac to common femoral vein. Patient placed on heparin drip. Hospice course complicated by fever of 101 yesterday. Afebrile today denies sick contacts. Also spoke to vascular in detail. After further review of CT scan abdomen it was found that patient's fibroids were present on venous system causing significant clotting. Patient doing well after procedure today. Patient's pain and swelling has improved significantly since procedure. Objective - Constitutional Vitals: Vital Signs - 12hr 06/07/20 06/07/20 06/07/20 23:26 23:30 23:46 Temperature 100.2 F H Pulse Rate 86 88 Pulse Rate [ From Monitor] Respiratory 25 H 24 Rate Blood Pressure 113/74 113/74 O2 Sat by Pulse 97 96 Oximetry 06/08/20 06/08/20 06/08/20 00:00 00:15 00:30 Temperature Pulse Rate 93 H 92 H 85 Pulse Rate [ 93 H From Monitor] Respiratory 18 27 H 26 H Rate Blood Pressure 113/74 116/71 119/71 O2 Sat by Pulse 96 100 97 Oximetry 06/08/20 06/08/20 06/08/20 00:45 01:00 01:30 Temperature Pulse Rate 87 91 H 85 Pulse Rate [ From Monitor] Respiratory 21 26 H 23 Rate Blood Pressure 116/71 127/67 116/59 O2 Sat by Pulse 98 98 97 Oximetry 06/08/20 06/08/20 06/08/20 02:00 02:30 03:00 Temperature Pulse Rate 88 88 90 Pulse Rate [ From Monitor] Respiratory 24 22 22 Rate Blood Pressure 105/54 111/60 96/59 O2 Sat by Pulse 97 98 100 Oximetry 06/08/20 06/08/20 06/08/20 03:28 03:30 04:00 Temperature 99.9 F H Pulse Rate 83 88 Pulse Rate [ 93 H From Monitor] Respiratory 19 26 H Rate Blood Pressure 114/59 113/48 O2 Sat by Pulse 100 98 Oximetry 06/08/20 06/08/20 06/08/20 04:30 05:00 05:30 Temperature Pulse Rate 87 89 89 Pulse Rate [ From Monitor] Respiratory 22 22 25 H Rate Blood Pressure 114/59 102/53 109/56 O2 Sat by Pulse 98 99 99 Oximetry 06/08/20 06/08/20 06/08/20 06:00 06:30 07:00 Temperature Pulse Rate 88 93 H 85 Pulse Rate [ From Monitor] Respiratory 23 17 24 Rate Blood Pressure 104/53 99/57 107/59 O2 Sat by Pulse 99 100 98 Oximetry 06/08/20 06/08/20 06/08/20 07:30 08:00 08:30 Temperature 98.6 F Pulse Rate 84 80 81 Pulse Rate [ 93 H From Monitor] Respiratory 19 23 25 H Rate Blood Pressure 97/55 109/62 105/63 O2 Sat by Pulse 100 100 99 Oximetry 06/08/20 09:00 Temperature Pulse Rate 82 Pulse Rate [ From Monitor] Respiratory 21 Rate Blood Pressure 103/59 O2 Sat by Pulse 100 Oximetry General appearance: Present: no acute distress, well-nourished - EENT Eyes: PERRL, EOM intact ENT: hearing intact, clear oral mucosa Ears: bilateral: normal - Neck Neck: supple, normal ROM - Respiratory Respiratory effort: normal Respiratory: bilateral: CTA - Breasts Breasts: normal - Cardiovascular Rhythm: regular Heart Sounds: Present: S1 & S2. Absent: gallop, rub Extremities: pulses intact, No edema, normal color, Full ROM Extremity abnormal: other (Decreased in size left thigh. Also pain has improved.) - Gastrointestinal General gastrointestinal: Present: soft, non-tender, non-distended, normal bowel sounds - Genitourinary Female genitourinary: normal - Integumentary Integumentary: clear, warm, dry - Musculoskeletal Musculoskeletal: 1, strength equal bilaterally - Neurologic Neurologic: moves all extremities - Psychiatric Psychiatric: memory intact, appropriate mood/affect, intact judgment & insight - Labs CBC & Chem 7: 06/08/20 06:25 06/08/20 06:25 Labs: Abnormal lab results 06/07/20 06/07/20 06/07/20 Range/Units 15:47 19:24 19:24 WBC 18.5 H (4.5-11.0) K/mm3 RBC (3.65-5.03) M/mm3 Hgb 9.7 L (10.1-14.3) gm/dl Hct (30.3-42.9) % MCH 27 L (28-32) pg RDW 15.4 H (13.2-15.2) % Lymph % (Auto) 8.6 L (13.4-35.0) % [place] % (Auto) 7.7 H (0.0-7.3) % Lymph # (1.2-5.4) K/mm3 [place] # 1.4 H (0.0-0.8) K/mm3 Seg Neutrophils % 81.5 H (40.0-70.0) % Seg Neutrophils # 15.1 H (1.8-7.7) K/mm3 APTT 37.8 H (24.2-36.6) Sec. Fibrinogen 548 H (211-480) mg/dl Heparin Anti-Xa Level < 0.10 L (0.3-0.7) U.I./ml Sodium 130 L (137-145) mmol/L Chloride 97.3 L (98-107) mmol/L Carbon Dioxide 14 L D (22-30) mmol/L Glucose (65-100) mg/dL 06/07/20 06/08/20 06/08/20 Range/Units 19:24 00:52 00:52 WBC 13.4 H (4.5-11.0) K/mm3 RBC 3.12 L (3.65-5.03) M/mm3 Hgb 8.9 L (10.1-14.3) gm/dl Hct 27.9 L (30.3-42.9) % MCH (28-32) pg RDW 15.4 H (13.2-15.2) % Lymph % (Auto) 8.5 L (13.4-35.0) % [place] % (Auto) (0.0-7.3) % Lymph # 1.1 L (1.2-5.4) K/mm3 [place] # 0.9 H (0.0-0.8) K/mm3 Seg Neutrophils % 83.1 H (40.0-70.0) % Seg Neutrophils # 11.1 H (1.8-7.7) K/mm3 APTT (24.2-36.6) Sec. Fibrinogen 574 H 190 L (211-480) mg/dl Heparin Anti-Xa Level 2.00 H < 0.10 L (0.3-0.7) U.I./ml Sodium (137-145) mmol/L Chloride (98-107) mmol/L Carbon Dioxide (22-30) mmol/L Glucose (65-100) mg/dL 06/08/20 06/08/20 06/08/20 Range/Units 06:25 06:25 06:25 WBC 12.4 H (4.5-11.0) K/mm3 RBC 2.76 L (3.65-5.03) M/mm3 Hgb 7.9 L (10.1-14.3) gm/dl Hct 24.5 L (30.3-42.9) % MCH (28-32) pg RDW (13.2-15.2) % Lymph % (Auto) 9.1 L (13.4-35.0) % [place] % (Auto) 9.3 H (0.0-7.3) % Lymph # 1.1 L (1.2-5.4) K/mm3 [place] # 1.2 H (0.0-0.8) K/mm3 Seg Neutrophils % 79.6 H (40.0-70.0) % Seg Neutrophils # 9.9 H (1.8-7.7) K/mm3 APTT (24.2-36.6) Sec. Fibrinogen (211-480) mg/dl Heparin Anti-Xa Level < 0.10 L (0.3-0.7) U.I./ml Sodium 134 L (137-145) mmol/L Chloride (98-107) mmol/L Carbon Dioxide 20 L (22-30) mmol/L Glucose 121 H (65-100) mg/dL
[2020-06-08 11:46] LABS: Fibrinogen < 60 mg/dl (211-480)
[2020-06-08] MEDS ORDERED: SODIUM CHLORIDE 0.9% 500 ML 500 ML IV ONE (11:54)
--- NOTE | 2020-06-08 12:13 | Event Note ---
Date: 06/08/20 Fibrinogen has dropped to a critically low level. TPA has been stopped at this time. Cryo has been ordered as well as 2 units of PRBC. No obvious signs of bleeding at this time. Hemodynamically stable at this time. Will await products prior to proceeding to the cathlab.
[2020-06-08] MEDS ORDERED: fentaNYL 100 MCG/2 ML INJ ONE (12:39)
[2020-06-08] MEDS ORDERED: HEPARIN/NS 5000 UNIT/500ML 1,000 ML IR ONE (12:40)
[2020-06-08] MEDS ORDERED: SODIUM CHLORIDE 0.9% 500 ML 500 ML ONE ×2 (12:40→17:58)
[2020-06-08] MEDS ORDERED: LIDOCAINE (2%) 20 MG/1 ML VIAL 20 ML MDV INFILTRATI ONE ×2 (12:40→13:32)
[2020-06-08] MEDS: HYDROmorphone 1 MG/1 ML INJ ONE ×4 (14:04→14:45)
[2020-06-08] MEDS: MIDAZOLAM 2 MG/2 ML INJ ONE ×3 (14:04→14:28)
[2020-06-08] MEDS: HEPARIN 10,000 UNITS/10 ML VIAL ONE ×2 (14:28→14:29)
[2020-06-08] MEDS ORDERED: HYDROmorphone 1 MG/1 ML INJ ONE (14:29)
[2020-06-08] MEDS ORDERED: MIDAZOLAM 2 MG/2 ML INJ ONE (14:31)
[2020-06-08] MEDS ORDERED: ONDANSETRON 4 MG/2 ML INJ ONE (14:56)
--- NOTE | 2020-06-08 15:41 | Operative Report ---
Operative Report Operative Report: Date of Procedure: 06/08/2020 Pre-operative Diagnosis: Extensive Left Lower Extremity DVT Status Post Thrombol ysis Post-operative Diagnosis: Same Procedure(s): 1. Removal of Left Lower Extremity EKOS Thrombolysis Catheter 2. Follow-up Left Lower Extremity Venogram 3. Percutaneous Mechanical Thrombectomy Of Left Popliteal Vein, Superficial Femoral Vein, and Common Femoral Vein with [employer] Infrastructure Engineer Device, 8 Fr Multi- Purpose Catheter, and 8 Fr AngioJet Zelante Catheter 4. Percutaneous Mechanical Thrombectomy of Left External Iliac Vein with [employer] Infrastructure Engineer Device, 8 Fr Multi-Purpose Catheter, and 8 Fr AngioJet [place] Catheter 5. Percutaneous Mechanical Thrombectomy of Left Common Iliac Vein with [employer] Infrastructure Engineer Device, 8 Fr Multi-Purpose Catheter, and 8 Fr AngioJet Zel[place] Catheter 6. Radiologic Supervision with Interpretation 7. Monitored Moderate Sedation (Total Anesthesia Time: 62 Minutes) Surgeon: Benny Ramirez M.D. Air Pollution Compliance Inspector: None Anesthesia: 2% Lidocaine/Monitored Moderate Sedation Total Anesthesia Time: 62 Minutes EBL: Minimal Counts: Correct Complications: None Condition: Stable Specimen: None Indication: The patient is a 49-year-old female who presented with an extensive left lower extremity DVT secondary to compression of her distal IVC and bilateral iliac veins from her uterus. She underwent thrombolysis overnight and returns for removal of the catheter and further intervention as needed. She was given the risk, benefits, and alternative procedures and consented to the procedure. Venogram Findings: The initial venogram after removing the thrombolysis catheter revealed that there was improved flow after thrombolysis overnight however there was significant residual thrombus burden throughout all of the veins. The popliteal vein and superficial femoral vein were significantly improved over the common femoral vein as well as the external iliac vein and common iliac vein had a significant amount of thrombus. After intervention there was minimal residual thrombus remaining in the popliteal vein, superficial femoral vein, common femoral vein, external iliac vein, or common iliac vein. There was however noticeable stenosis of the common iliac vein secondary to the compression from the uterus with a stagnant column of contrast and significant back pressure in the venous system with the sheath open. There was no additional thrombus noted within the inferior vena cava filter at the completion of the case. Description of Procedure: The patient was brought to the [facility] [employer] [facility] and laid in prone position. After a timeout was performed her left popliteal fossa as well as her indwelling sheath and catheter were prepped and draped in normal sterile fashion. The ultrasound wire was removed from the thrombolysis catheter and a 0.035 J-wire was advanced through the catheter. The catheter was then removed and a venogram was performed through the 6 [place] sheath with the previously described findings. I systemically heparinized the patient with 5000 units of heparin IV and then used the [employer] Infrastructure Engineer Device to morcellate the thrombus within the popliteal vein, superficial femoral vein, common femoral vein, external iliac vein, and common iliac vein. Anesthetize the skin and soft tissue around the 6 [place] sheath and exchanged for an 8 [place] 25 cm sheath by Seldinger technique. I then used the AngioJet Zelante aspiration catheter to aspirate thrombus from all of the vessels. A follow-up venogram revealed residual thrombus within these vessels although it was significantly improved. I used an 8 [place] multipurpose catheter to aspirate the thrombus from these vessels. The follow-up venogram revealed minimal to almost no residual thrombus within any of the previously named vessels. There was stenosis in the common iliac vein likely secondary to compression from the uterus. I advanced a multipurpose catheter into the inferi or vena cava and performed an inferior venacavogram and there was no evidence of thrombus that had embolized into the inferior vena cava filter. At that point I removed the multipurpose catheter and then the 8 [place] sheath and manual pressure was held to achieve hemostasis. Once hemostasis was achieved a pressure dressing was applied and the patient was transported back to the ICU in stable condition.
[2020-06-08] MEDS: HEPARIN/NS 5000 UNIT/500ML 1,000 ML IR ONE ×2 (17:25→20:14)
[2020-06-08] MEDS: HEPARIN/ 0.45% NACL DRIP 25,000 UNIT/500 ML BAG IV SCH (17:26)
[2020-06-09] MEDS ORDERED: SODIUM CHLORIDE 0.9% 500 ML 500 ML ONE (02:09)
[2020-06-09 05:54] LABS: Hematocrit 23.9 % (30.3-42.9); Hemoglobin 7.9 gm/dl (10.1-14.3); Mean Corpuscular HGB Conc 33 % (30-34); Mean Corpuscular Volume 90 fl (79-97); Platelet Count 128 K/mm3 (140-440); Red Blood Count 2.66 M/mm3 (3.65-5.03)
[2020-06-09 06:08] LABS: INR 1.27 (0.87-1.13)
[2020-06-09 06:09] LABS: BUN/Creatinine Ratio 15; Blood Urea Nitrogen 17 mg/dL (7-17); Calcium 8.5 mg/dL (8.4-10.2); Hemolysis Index 0
--- NOTE | 2020-06-09 11:24 | Progress Note ---
Assessment and Plan 49 y/o female with extensive VTE in lungs and limbs, s/p EKOS to lower ext. 1. Pulm- Has VTE, small, and currently stable on room air. There is no contraindication pulmonary bazzi for surgery to remove mass from abdomen pelvis. She is as optimized as she will be from this standpoint. 2. Reviewed the OB note and appreciate their help, however I would not suggest starting oral anticoagulation until a definitive plan is set for her mass. From speaking with vascular, if this is not removed, she will clot off again. If HERB COUNSELOR/ONC is not available here may need to consider transfer as it appears removal of this is the only solution to her lower ext vascular issues. 3. Needs hypercoag work up and age/sex appropriate screening for malignancy. 4. catheters are out, stable for transfer out of unit. 5. Pulm bazzi stable, will see as needed. Subjective Date of service: 06/09/20 Principal diagnosis: Pulmonary embolism DVT. Interval history: No acute events overnight, catheters removed. Remains on room air. Objective - Constitutional Vitals: Vital Signs - 12hr 06/08/20 06/08/20 06/08/20 23:31 23:39 23:42 Temperature 99.3 F 98.6 F Pulse Rate 101 H 101 H Pulse Rate [ From Monitor] Respiratory 27 H 27 H Rate Blood Pressure 108/65 108/65 O2 Sat by Pulse Oximetry 06/08/20 06/09/20 06/09/20 23:53 00:00 00:30 Temperature Pulse Rate 102 H 99 H 93 H Pulse Rate [ 99 H From Monitor] Respiratory 25 H 24 20 Rate Blood Pressure 118/80 116/69 110/60 O2 Sat by Pulse 96 95 Oximetry 06/09/20 06/09/20 06/09/20 01:00 01:30 02:00 Temperature Pulse Rate 95 H 91 H 92 H Pulse Rate [ From Monitor] Respiratory 19 22 27 H Rate Blood Pressure 111/60 104/56 106/61 O2 Sat by Pulse 96 Oximetry 06/09/20 06/09/20 06/09/20 02:30 03:00 03:30 Temperature Pulse Rate 95 H 98 H 96 H Pulse Rate [ From Monitor] Respiratory 22 22 24 Rate Blood Pressure 112/61 113/64 108/63 O2 Sat by Pulse 96 Oximetry 06/09/20 06/09/20 06/09/20 03:34 04:00 04:30 Temperature 99.4 F Pulse Rate 103 H 98 H Pulse Rate [ 103 H From Monitor] Respiratory 26 H 26 H Rate Blood Pressure 111/68 105/58 O2 Sat by Pulse 96 Oximetry 06/09/20 06/09/20 06/09/20 05:00 05:30 06:00 Temperature Pulse Rate 95 H 96 H 94 H Pulse Rate [ From Monitor] Respiratory 23 25 H 23 Rate Blood Pressure 116/64 115/62 114/61 O2 Sat by Pulse 96 94 93 Oximetry 06/09/20 06/09/20 06/09/20 06:30 06:41 06:51 Temperature Pulse Rate 94 H 91 H 92 H Pulse Rate [ From Monitor] Respiratory 24 22 21 Rate Blood Pressure 114/64 114/64 111/62 O2 Sat by Pulse 93 95 Oximetry 06/09/20 06/09/20 06/09/20 07:00 07:11 07:21 Temperature Pulse Rate 91 H 93 H 91 H Pulse Rate [ From Monitor] Respiratory 22 22 23 Rate Blood Pressure 113/61 113/61 110/61 O2 Sat by Pulse Oximetry 06/09/20 06/09/20 06/09/20 07:30 07:40 07:52 Temperature Pulse Rate 91 H 94 H 93 H Pulse Rate [ From Monitor] Respiratory 25 H 28 H 25 H Rate Blood Pressure 111/63 110/61 O2 Sat by Pulse Oximetry 06/09/20 06/09/20 06/09/20 07:55 08:00 08:30 Temperature 99.0 F Pulse Rate 91 H 92 H Pulse Rate [ From Monitor] Respiratory 17 31 H Rate Blood Pressure 112/67 124/66 O2 Sat by Pulse Oximetry 06/09/20 06/09/20 06/09/20 09:00 09:30 10:00 Temperature Pulse Rate 99 H 92 H 91 H Pulse Rate [ From Monitor] Respiratory 21 25 H 23 Rate Blood Pressure 107/65 116/70 116/68 O2 Sat by Pulse Oximetry 06/09/20 06/09/20 10:30 11:00 Temperature Pulse Rate 88 90 Pulse Rate [ From Monitor] Respiratory 21 26 H Rate Blood Pressure 114/63 114/68 O2 Sat by Pulse Oximetry - Labs CBC & Chem 7: 06/09/20 05:43 06/09/20 05:41 Labs: Abnormal lab results 06/07/20 06/08/20 06/09/20 Range/Units 15:47 10:04 05:41 WBC (4.5-11.0) K/mm3 RBC (3.65-5.03) M/mm3 Hgb (10.1-14.3) gm/dl Hct (30.3-42.9) % Plt Count (140-440) K/mm3 PT 16.1 H (12.2-14.9) Sec. INR 1.27 H (0.87-1.13) APTT 38.0 H (24.2-36.6) Sec. Fibrinogen < 60 L* (211-480) mg/dl Heparin Anti-Xa Level 0.10 L (0.3-0.7) U.I./ml Sodium (137-145) mmol/L Carbon Dioxide (22-30) mmol/L Glucose (65-100) mg/dL Crossmatch See Detail 06/09/20 06/09/20 06/09/20 Range/Units 05:41 05:41 05:43 WBC 12.6 H (4.5-11.0) K/mm3 RBC 2.66 L (3.65-5.03) M/mm3 Hgb 7.9 L (10.1-14.3) gm/dl Hct 23.9 L (30.3-42.9) % Plt Count 128 L (140-440) K/mm3 PT (12.2-14.9) Sec. INR (0.87-1.13) APTT (24.2-36.6) Sec. Fibrinogen (211-480) mg/dl Heparin Anti-Xa Level 0.10 L (0.3-0.7) U.I./ml Sodium 134 L (137-145) mmol/L Carbon Dioxide 20 L (22-30) mmol/L Glucose 122 H (65-100) mg/dL Crossmatch Medications & Allergies - Medications Allergies/Adverse Reactions: Allergies No Known Allergies Allergy (Verified 06/05/20 22:20) Active Medications: Generic Name Dose Route Start Last Admin Trade Name Freq PRN Reason Stop Dose Admin Acetaminophen 650 mg 06/07/20 13:15 Tylenol PO Q6H PRN Pain, Mild (1-3) Acetaminophen/Hydrocodone Bitart 2 each 06/07/20 13:15 06/08/20 08:22 [place] 5/325 PO 2 each Q6H PRN Administration Pain, Moderate (4-6) Heparin Sodium/Sodium Chloride 25,000 unit in 500 mls @ 30 mls/hr 06/08/20 17:00 06/09/20 06:28 Heparin/ 0.45% Nacl-25,000 Unit/500 Ml IV 1,200 units/hr TITR DIMITRIOS 24 mls/hr Titration Protocol 1,500 UNITS/HR Magnesium Hydroxide 30 ml 06/05/20 22:10 Milk Of Magnesia PO Q4H PRN Constipation Morphine Sulfate 4 mg 06/07/20 13:15 06/07/20 21:01 Morphine IV 4 mg Q4H PRN Administration Pain , Severe (7-10) Morphine Sulfate 2 mg 06/07/20 13:15 Morphine IV Q4H PRN Pain, Moderate (4-6) Ondansetron HCl 4 mg 06/07/20 13:15 Zofran IV Q8H PRN Nausea And Vomiting Sodium Chloride 10 ml 06/06/20 10:00 06/09/20 01:18 Sodium Chloride Flush Syringe 10 Ml IV 10 ml BID DIMITRIOS Administration Sodium Chloride 10 ml 06/05/20 22:10 Sodium Chloride Flush Syringe 10 Ml IV PRN PRN LINE FLUSH
--- NOTE | 2020-06-09 12:51 | Discharge Summary ---
Providers - Providers Date of Admission: 06/05/20 21:58 Date of discharge: 06/09/20 Attending physician: JOY PRIDE 06/06/20 08:50 Consult to Physician [CONS] Routine Comment: Consulting Provider: ESSENCE HOOD Physician Instructions: Reason For Exam: extensive dvt 06/07/20 12:20 Consult to Physician [CONS] Routine Comment: Consulting Provider: LIBIA MILLER Physician Instructions: Reason For Exam: fibroid 06/07/20 16:55 Consult to Physician [CONS] Routine Comment: I have alredy spoken with him Consulting Provider: SHERLY PALMA Physician Instructions: Reason For Exam: Critical Care Management Primary care physician: VEGETABLE CUTTER Hospitalization Condition: Good Procedures: . Removal of Left Lower Extremity EKOS Thrombolysis Catheter 2. Follow-up Left Lower Extremity Venogram 3. Percutaneous Mechanical Thrombectomy Of Left Popliteal Vein, Superficial Femoral Vein, and Common Femoral Vein with Argon Bridge Worker Device, 8 Fr Multi- Purpose Catheter, and 8 Fr AngioJet Zelante Catheter 4. Percutaneous Mechanical Thrombectomy of Left External Iliac Vein with Argon Bridge Worker Device, 8 Fr Multi-Purpose Catheter, and 8 Fr AngioJet Zelante Catheter 5. Percutaneous Mechanical Thrombectomy of Left Common Iliac Vein with Argon Bridge Worker Device, 8 Fr Multi-Purpose Catheter, and 8 Fr AngioJet Zelante Catheter Hospital course: 49-year-old female with no significant past medical history except for heavy bleeding and uterine fibroids. Presents to the emergency room today complaining of left thigh pain which has been ongoing for about 2 days. She denies any fall or trauma to the time. Thigh is gotten swollen and become more painful today and therefore reports to the emergency room. During work-up patient found to have bilateral pulmonary embolism and extensive left iliac DVT. Description and size of DVT mentioned in pertinent findings above. Given the extent and size of the DVT vascular consult was obtained for possible vascular intervention. Patient had lysis of clot done on June 07, 2020 via EKOS. During vascular work-up they thought that the clot formation was directly related to uterine fibroid. Either from the size causing stasis on the vasculature or malignancy. TOWBOAT CAPTAIN consult was obtained for hysterectomy. During TOWBOAT CAPTAIN evaluation of the size of the fibroid 3 months ago and now thought patient had a high risk of a TOWBOAT CAPTAIN malignancy especially since patient had developed significant clotting. They then recommended TOWBOAT CAPTAIN-oncology evaluation. We do not have those services here at [facility] and therefore sought transfer services. Initial call to Dr. Chris Rodriguez at [facility] was on vacation. Then spoke with Dr. Rivera's PA Marybeth Solis which initiated transfer from [facility] At present patient pain-free hemodynamically stable coagulated on heparin drip. During work-up Disposition: DC-30 STILL A PATIENT - Discharge Diagnoses (1) Acute DVT (deep venous thrombosis) Status: Acute Comment: Patient with extensive acute DVT involving the left distal external iliac vein extending to the left common femoral vein status post thrombolyzes via EKOS catheter now removed. Patient pain-free anticoagulated with heparin stable for discharge. Will most require at least 6 months of Eliquis (2) Deep vein thrombosis of iliac vein of left lower extremity Status: Acute (3) Full code status Status: Acute (4) Pulmonary embolism Status: Acute Comment: Patient oxygenating well after procedure. Much less short of breath procedure went well. Continue heparin drip will need continue adequate anticoagulation after hysterectomy. (5) Uterine fibroid Status: Acute Comment: Patient will require immediate hysterectomy. Work-up for TOWBOAT CAPTAIN malignancy has been suggested via TOWBOAT CAPTAIN here. The compression of the clot on the distal IVC and bilateral iliacs was thought to be a cause of clotting. Vascular suggested immediate removal of uterus. (6) Morbid obesity with BMI of 40.0-44.9, adult Status: Acute Comment: Suggestions for increase physical activity and decreased p.o. intake have been initiated and can be followed on outpatient visit. Core Measure Documentation - Palliative Care Palliative Care/ Comfort Measures: Not Applicable - Core Measures Any of the following diagnoses?: DVT/PE - VTE Discharge Requirements Deep Vein Thrombosis/Pulmonary Embolism Present on Admission: Yes Has pt received <5 days of overlap therapy or INR<2.0: No (heparin drip) Anticoagulant overlap therapy prescribed at discharge: Yes Exam - Constitutional Vitals: Temp Pulse Resp BP Pulse Ox 99.1 F 89 27 H 119/72 95 06/09/20 12:25 06/09/20 12:30 06/09/20 12:30 06/09/20 12:30 06/09/20 06:51 General appearance: Present: no acute distress, well-nourished - EENT Eyes: Present: PERRL ENT: hearing intact, clear oral mucosa - Neck Neck: Present: supple, normal ROM - Respiratory Respiratory effort: normal Respiratory: bilateral: CTA - Cardiovascular Heart Sounds: Present: S1 & S2. Absent: rub, click - Extremities Extremities: pulses symmetrical, No edema Extremity abnormal: other (Significant reduction of left thigh size.) Peripheral Pulses: within normal limits - Abdominal General gastrointestinal: Present: soft, non-tender, non-distended, normal bowel sounds Female genitourinary: Present: normal - Integumentary Integumentary: Present: clear, warm, dry - Musculoskeletal Musculoskeletal: gait normal, strength equal bilaterally - Psychiatric Psychiatric: appropriate mood/affect, intact judgment & insight - Neurologic Neurologic: CNII-XII intact, moves all extremities Plan Activity: avoid flexion Weight Bearing Status: Partial Weight Bearing Diet: low fat, low salt Follow up with: PRIMARY CARE, [Primary Care Provider] - 3-5 Days
--- NOTE | 2020-06-09 13:58 | Progress Note ---
Assessment and Plan 49 year old female with LLE DVT and large multifibroid uterus with compression of the IVC with thrombotic event. Status post IVC filter, thrombolysis, and thrombectomy. Doing well. Remove dressing applied ADALGISA hose. Will need anticoagulation for minimum 6 months. Uterus is compressing IVC leading to thrombotic events. Patient being t ransferred for evaluation for hysterectomy. Subjective Date of service: 06/09/20 Principal diagnosis: Pulmonary embolism DVT. Interval history: Had thrombectomy. LLE feeling better. Took down dressing and replaced with band aid. Doing well. Has some abdominal pain. Ordered ADALGISA hose. Objective - Constitutional Vitals: Vital Signs - 12hr 06/09/20 06/09/20 06/09/20 02:00 02:30 03:00 Temperature Pulse Rate 92 H 95 H 98 H Pulse Rate [ From Monitor] Respiratory 27 H 22 22 Rate Blood Pressure 106/61 112/61 113/64 O2 Sat by Pulse 96 Oximetry 06/09/20 06/09/20 06/09/20 03:30 03:34 04:00 Temperature 99.4 F Pulse Rate 96 H 103 H Pulse Rate [ 103 H From Monitor] Respiratory 24 26 H Rate Blood Pressure 108/63 111/68 O2 Sat by Pulse 96 Oximetry 06/09/20 06/09/20 06/09/20 04:30 05:00 05:30 Temperature Pulse Rate 98 H 95 H 96 H Pulse Rate [ From Monitor] Respiratory 26 H 23 25 H Rate Blood Pressure 105/58 116/64 115/62 O2 Sat by Pulse 96 94 Oximetry 06/09/20 06/09/20 06/09/20 06:00 06:30 06:41 Temperature Pulse Rate 94 H 94 H 91 H Pulse Rate [ From Monitor] Respiratory 23 24 22 Rate Blood Pressure 114/61 114/64 114/64 O2 Sat by Pulse 93 93 Oximetry 06/09/20 06/09/20 06/09/20 06:51 07:00 07:11 Temperature Pulse Rate 92 H 91 H 93 H Pulse Rate [ From Monitor] Respiratory 21 22 22 Rate Blood Pressure 111/62 113/61 113/61 O2 Sat by Pulse 95 Oximetry 06/09/20 06/09/20 06/09/20 07:21 07:30 07:40 Temperature Pulse Rate 91 H 91 H 94 H Pulse Rate [ From Monitor] Respiratory 23 25 H 28 H Rate Blood Pressure 110/61 111/63 110/61 O2 Sat by Pulse Oximetry 06/09/20 06/09/20 06/09/20 07:52 07:55 08:00 Temperature 99.0 F Pulse Rate 93 H 91 H Pulse Rate [ From Monitor] Respiratory 25 H 17 Rate Blood Pressure 112/67 O2 Sat by Pulse Oximetry 06/09/20 06/09/20 06/09/20 08:30 09:00 09:30 Temperature Pulse Rate 92 H 99 H 92 H Pulse Rate [ From Monitor] Respiratory 31 H 21 25 H Rate Blood Pressure 124/66 107/65 116/70 O2 Sat by Pulse Oximetry 06/09/20 06/09/20 06/09/20 10:00 10:30 11:00 Temperature Pulse Rate 91 H 88 90 Pulse Rate [ From Monitor] Respiratory 23 21 26 H Rate Blood Pressure 116/68 114/63 114/68 O2 Sat by Pulse Oximetry 06/09/20 06/09/20 06/09/20 11:10 11:20 11:30 Temperature Pulse Rate 91 H 94 H 91 H Pulse Rate [ From Monitor] Respiratory 27 H 29 H 26 H Rate Blood Pressure 114/68 114/65 113/68 O2 Sat by Pulse Oximetry 06/09/20 06/09/20 06/09/20 11:40 11:50 12:00 Temperature Pulse Rate 88 93 H 90 Pulse Rate [ From Monitor] Respiratory 25 H 30 H 27 H Rate Blood Pressure 113/68 115/70 114/68 O2 Sat by Pulse Oximetry 06/09/20 06/09/20 06/09/20 12:10 12:20 12:25 Temperature 99.1 F Pulse Rate 93 H 89 Pulse Rate [ From Monitor] Respiratory 17 19 Rate Blood Pressure 114/68 119/68 O2 Sat by Pulse Oximetry 06/09/20 06/09/20 12:30 13:00 Temperature Pulse Rate 89 90 Pulse Rate [ From Monitor] Respiratory 27 H 28 H Rate Blood Pressure 119/72 120/68 O2 Sat by Pulse Oximetry General appearance: Present: no acute distress - EENT Eyes: EOM intact ENT: hearing intact - Respiratory Respiratory effort: normal Extremities: pulses intact (L palpable pedal pulses), normal temperature, normal color - Gastrointestinal General gastrointestinal: Present: tender (diffuse abdominal, mild) - Psychiatric Psychiatric: appropriate mood/affect, cooperative - Labs CBC & Chem 7: 06/09/20 05:43 06/09/20 05:41 Labs: Abnormal lab results 06/07/20 06/09/20 06/09/20 Range/Units 15:47 05:41 05:41 WBC (4.5-11.0) K/mm3 RBC (3.65-5.03) M/mm3 Hgb (10.1-14.3) gm/dl Hct (30.3-42.9) % Plt Count (140-440) K/mm3 PT 16.1 H (12.2-14.9) Sec. INR 1.27 H (0.87-1.13) APTT 38.0 H (24.2-36.6) Sec. Heparin Anti-Xa Level (0.3-0.7) U.I./ml Sodium 134 L (137-145) mmol/L Carbon Dioxide 20 L (22-30) mmol/L Glucose 122 H (65-100) mg/dL Crossmatch See Detail 06/09/20 06/09/20 Range/Units 05:41 05:43 WBC 12.6 H (4.5-11.0) K/mm3 RBC 2.66 L (3.65-5.03) M/mm3 Hgb 7.9 L (10.1-14.3) gm/dl Hct 23.9 L (30.3-42.9) % Plt Count 128 L (140-440) K/mm3 PT (12.2-14.9) Sec. INR (0.87-1.13) APTT (24.2-36.6) Sec. Heparin Anti-Xa Level 0.10 L (0.3-0.7) U.I./ml Sodium (137-145) mmol/L Carbon Dioxide (22-30) mmol/L Glucose (65-100) mg/dL Crossmatch Medications & Allergies - Medications Allergies/Adverse Reactions: Allergies No Known Allergies Allergy (Verified 06/05/20 22:20) Home Medications: Home Medications Medication Instructions Recorded Confirmed Last Taken Type Acetaminophen [Acetaminophen TAB] 650 mg PO Q6H PRN tablet 06/09/20 Unknown Rx HYDROcodone/APAP 5-325 [[place] 2 each PO Q6H PRN tablet 06/09/20 Unknown Rx 5-325 mg TAB] Magnesium Hydroxide [Milk of 30 ml PO Q4H PRN oral.liqd 06/09/20 Unknown Rx Magnesia] Active Medications: Generic Name Dose Route Start Last Admin Trade Name Freq PRN Reason Stop Dose Admin Acetaminophen 650 mg 06/07/20 13:15 Tylenol PO Q6H PRN Pain, Mild (1-3) Acetaminophen/Hydrocodone Bitart 2 each 06/07/20 13:15 06/08/20 08:22 [place] 5/325 PO 2 each Q6H PRN Administration Pain, Moderate (4-6) Heparin Sodium/Sodium Chloride 25,000 unit in 500 mls @ 30 mls/hr 06/08/20 17:00 06/09/20 06:28 Heparin/ 0.45% Nacl-25,000 Unit/500 Ml IV 1,200 units/hr TITR DIMITRIOS 24 mls/hr Titration Protocol 1,500 UNITS/HR Magnesium Hydroxide 30 ml 06/05/20 22:10 Milk Of Magnesia PO Q4H PRN Constipation Morphine Sulfate 4 mg 06/07/20 13:15 06/07/20 21:01 Morphine IV 4 mg Q4H PRN Administration Pain , Severe (7-10) Morphine Sulfate 2 mg 06/07/20 13:15 Morphine IV Q4H PRN Pain, Moderate (4-6) Ondansetron HCl 4 mg 06/07/20 13:15 Zofran IV Q8H PRN Nausea And Vomiting Sodium Chloride 10 ml 06/06/20 10:00 06/09/20 13:02 Sodium Chloride Flush Syringe 10 Ml IV 10 ml BID DIMITRIOS Administration Sodium Chloride 10 ml 06/05/20 22:10 Sodium Chloride Flush Syringe 10 Ml IV PRN PRN LINE FLUSH
[2020-06-09] MEDS: HYDROcodone/ACETAMINOPHEN 5-325 MG TAB PO PRN (14:15)
[2020-06-09 15:23] VITALS: BP 118/71
[2020-06-09] MEDS: HEPARIN/ 0.45% NACL DRIP 25,000 UNIT/500 ML BAG IV SCH (18:14)
== END 2020-06-09 21:55 | disposition home or self-care (01) | DRG 270 ==
LOC: ED 15:09 → 3A 21:58 → CC1 06-07 18:11 → 3B-SURG 06-09 15:40
PROVIDERS: ADMIT Internal Medicine Geriatric Medicine; ATTEND Internal Medicine
PROC: 3E03317 Introduction of Other Thrombolytic into Peripheral Vein, Percutaneous Approach (ICD-10-PCS; principal; 2020-06-07)
PROC: 06H03DZ Insertion of Intraluminal Device into Inferior Vena Cava, Percutaneous Approach (ICD-10-PCS; 2020-06-07)
PROC: B543ZZZ Ultrasonography of Right Jugular Veins (ICD-10-PCS; 2020-06-07)
PROC: B5191ZZ Fluoroscopy of Inferior Vena Cava using Low Osmolar Contrast (ICD-10-PCS; 2020-06-07)
PROC: B54CZZZ Ultrasonography of Left Lower Extremity Veins (ICD-10-PCS; 2020-06-07)
PROC: B51C1ZZ Fluoroscopy of Left Lower Extremity Veins using Low Osmolar Contrast (ICD-10-PCS; 2020-06-07)
PROC: 04CN3ZZ Extirpation of Matter from Left Popliteal Artery, Percutaneous Approach (ICD-10-PCS; 2020-06-08)
PROC: 04CL3ZZ Extirpation of Matter from Left Femoral Artery, Percutaneous Approach (ICD-10-PCS; 2020-06-08)
PROC: 04CJ3ZZ Extirpation of Matter from Left External Iliac Artery, Percutaneous Approach (ICD-10-PCS; 2020-06-08)
PROC: 04CD3ZZ Extirpation of Matter from Left Common Iliac Artery, Percutaneous Approach (ICD-10-PCS; 2020-06-08)
PROC: 30233N1 Transfusion of Nonautologous Red Blood Cells into Peripheral Vein, Percutaneous Approach (ICD-10-PCS; 2020-06-08)
DX: I82.422 Acute embolism and thrombosis of left iliac vein (principal); I26.99 Other pulmonary embolism without acute cor pulmonale; Z68.41 Body mass index [BMI] 40.0-44.9, adult; D25.9 Leiomyoma of uterus, unspecified; E66.01 Morbid (severe) obesity due to excess calories; Z20.828 Contact with and (suspected) exposure to other viral communicable diseases
CPT/HCPCS: 36415; 37187; 37191; 37212; 37214; 71275; 75635; 75820; 76937; 80048; 80053; 85014; 85018; 85025; 85027; 85049; 85384; 85520; 85610; 85730; 86850; 86900; 86901; 86920; 96361; 96374; G0378; C1757; C1769; C1880; C1887; C1894; J1170; J1644; J2250; J2270; J2405; J2997; J3010; J7030; J7040; P9016; Q9967; U0003-CS

== ENCOUNTER 2021-02-18 06:14 | Day surgery (SDC) | payer OTHER ==
[2021-02-18] MEDS ORDERED: SODIUM CHLORIDE 0.9% 500 ML 500 ML IV SCH (07:00)
[2021-02-18 07:14] LABS: Basophils % (Auto) 0.5 % (0.0-1.8); Eosinophils # (Auto) 0.1 K/mm3 (0.0-0.4); Eosinophils % (Auto) 2.1 % (0.0-4.3); Hematocrit 35.9 % (30.3-42.9); Hemoglobin 11.9 gm/dl (10.1-14.3); Lymphocytes % (Auto) 34.8 % (13.4-35.0); Mean Corpuscular HGB Conc 33 % (30-34); Mean Corpuscular Volume 84 fl (79-97); Monocytes # (Auto) 0.4 K/mm3 (0.0-0.8); Monocytes % (Auto) 7.9 % (0.0-7.3); Platelet Count 208 K/mm3 (140-440); Red Blood Count 4.27 M/mm3 (3.65-5.03); Red Cell Distribution Width 17.8 % (13.2-15.2)
[2021-02-18 07:25] LABS: INR 0.99 (0.87-1.13); Partial Thromboplastin Time 26.3 Sec. (24.2-36.6)
[2021-02-18 07:28] LABS: BUN/Creatinine Ratio 16; Blood Urea Nitrogen 13 mg/dL (7-17); Calcium 9.4 mg/dL (8.4-10.2); Hemolysis Index 144
[2021-02-18] MEDS ORDERED: HEPARIN/NS 5000 UNIT/500ML 500 ML IR ONE ×2 (08:17→09:26)
[2021-02-18] MEDS ORDERED: LIDOCAINE (2%) 20 MG/1 ML VIAL 20 ML MDV INFILTRATI ONE (08:18)
[2021-02-18] MEDS ORDERED: ceFAZolin/Water 2 GM/20 ML 2 GM/20 ML SYRINGE IV ONE (09:05)
[2021-02-18] MEDS: fentaNYL 100 MCG/2 ML INJ ONE ×2 (09:08→09:18)
[2021-02-18] MEDS: MIDAZOLAM 2 MG/2 ML INJ ONE ×2 (09:08→09:18)
[2021-02-18] MEDS ORDERED: fentaNYL 100 MCG/2 ML INJ ONE (09:37)
[2021-02-18] MEDS ORDERED: MIDAZOLAM 2 MG/2 ML INJ ONE (09:37)
[2021-02-18] MEDS: HEPARIN 10,000 UNITS/10 ML VIAL ONE ×2 (09:43→09:57)
--- NOTE | 2021-02-18 10:55 | Short Stay Summary ---
Short Stay Documentation Date of service: 02/18/21 - History H&P: obtained from office - Allergies and Medications Current Medications: Allergies No Known Allergies Allergy (Verified 06/05/20 22:20) Home Medications Medication Instructions Recorded Confirmed Last Taken Type Acetaminophen [Acetaminophen TAB] 650 mg PO Q6H PRN tablet 06/09/20 Unknown Rx HYDROcodone/APAP 5-325 [[place] 2 each PO Q6H PRN tablet 06/09/20 Unknown Rx 5-325 mg TAB] Magnesium Hydroxide [Milk of 30 ml PO Q4H PRN oral.liqd 06/09/20 Unknown Rx Magnesia] Active Medications Sodium Chloride (Nacl 0.9% 500 Ml) 500 mls @ 50 mls/hr IV DIRECT DIMITRIOS Last Admin: 02/18/21 08:20 Dose: 50 mls/hr Documented by: - Brief post op/procedure progress note Date of procedure: 02/18/21 Pre-op diagnosis: Retained IVC Filter Post-op diagnosis: same Procedure: 1. Ultrasound-Guided Access Right Internal Jugular Vein 2. Inferior Venacavogram 3. Retrieval of Maribel IVC Filter 4. Radiologic Supervision with Interpretation 5. Monitored Moderate Sedation (Total Anesthesia Time: 64 Minutes) Anesthesia: local, other (Monitored Moderate Sedation) Surgeon: JOY RODRIGUEZ Estimated blood loss: minimal Condition: stable - Disposition Condition at discharge: Good Disposition: DC-01 TO HOME OR SELFCARE Short Stay Discharge Plan Activity: other (No strenuous activity for 24 hours) Wound: open to air, keep clean and dry, other (Okay to shower and wash the wound with soap and water but do not soak in water for 2 weeks.) Follow up with: JOY RODRIGUEZ MD [Staff Physician] - 14 Days
--- NOTE | 2021-02-18 11:19 | Operative Report ---
Operative Report Operative Report: Date of Procedure: 02/18/2021 Pre-operative Diagnosis: Retained IVC Filter Post-operative Diagnosis: Same Procedure(s): 1. Ultrasound-Guided Access Right Internal Jugular Vein 2. Inferior Venacavogram 3. Retrieval of Cowley IVC Filter 4. Radiologic Supervision with Interpretation 5. Monitored Moderate Sedation (Total Anesthesia Time: 64 Minutes) Surgeon: Benny Ramirez M.D. Bilingual Office Assistant: None Anesthesia: Monitored Moderate Sedation Total Anesthesia Time: 64 Minutes EBL: Minimal Counts: Correct Complications: None Condition: Stable Specimen: None Indication: The patient is a 50-year-old female with a history of DVT and PE who had an IVC filter placed and required to remain in place until she had a hysterectomy. There was a previous attempt to have the filter removed that was unsuccessful and she returns for removal with the loop snare technique. She was given the risk, benefits, and alternative procedures and consented to the procedure. Description of Procedure: The patient was brought to the [facility] and laid in supine position. After a timeout was performed her right neck was prepped and draped in normal sterile fashion. Ultrasound was used to identify the right internal jugular vein and confirm patency. Once patency was confirmed the overlying skin and soft tissue was anesthetized with lidocaine. An 11 blade was used to make a small stab incision and then a curved hemostat was used to bluntly dissect down to the anterior surface of the right internal jugular vein. A 21-gauge micropuncture needle was used with ultrasound guidance in the right internal jugular vein and a 0.018 micropuncture wire was advanced into the vein. The needle was removed and the micropuncture sheath was advanced by Seldinger technique. The wire and inner cannula were removed and the 0.035 Bentson wire was advanced into the inferior vena cava with the use of the vertebral catheter. I then placed a 6 Burmese sheath by Seldinger technique. I used the vertebral catheter exchanged the Bentson wire for a 0.035 Amplatz wire and then exchanged the 6 Burmese sheath for a 16 Burmese 45 cm sheath. This point I systemically heparinized the patient with 3000 units of heparin IV. I then advanced an Omni Flush catheter over the Amplatz wire and then exchanged the Amplatz wire for a 0.035 floppy Glidewire I pulled the wire back until the Omni Flush catheter formed and I was able to pull the Omni Flush catheter under the IVC filter and ensure that it was formed below the center of the filter in all legs. I then advanced the Glidewire until it was now advanced up towards the 16 Burmese sheath. I now advanced an additional AIMM [employer] wire, as a ángel wire, alongside the Omni Flush catheter. I advanced the catheter for the EnSnare 6-10 mm Endovascular Snare System over the wire and after removing the wire advanced a snare into position. I was able to snare the Glidewire and pulled it back through the 16 Burmese sheath. I then remove the Omni Flush catheter over the Glidewire and then advanced the 10 Burmese Cook filter retrieval sheath over the 2 ends of the Glidewire and advanced this down over the filter in place for pressure over the 10 Burmese sheath as well as the 16 Burmese sheath while retracting on the Glidewire. I was able to eventually retrieved the filter into the 16 Burmese sheath. I remove the filter and counted all limbs which were accounted for. I performed a final venogram which revealed no evidence of thrombus or extravasation from the inferior vena cava. I then remove the sheath and closed the skin incision with 4-0 Vicryl in interrupted fashion. The skin was then dressed with Dermabond. The patient tolerated the procedure well and was transported to the recovery area in stable condition.
[2021-02-18 11:50] VITALS: BP 152/84
== END 2021-02-18 12:15 | disposition home or self-care (01) ==
LOC: CATHLABREC 06:14
PROVIDERS: ATTEND Surgery Vascular Surgery
DX: Z45.89 Encounter for adjustment and management of other implanted devices (principal); T80.89XA Other complications following infusion, transfusion and therapeutic injection, initial encounter; E66.01 Morbid (severe) obesity due to excess calories; Z86.711 Personal history of pulmonary embolism; Z86.718 Personal history of other venous thrombosis and embolism; Z79.899 Other long term (current) drug therapy; Z90.49 Acquired absence of other specified parts of digestive tract; Z98.890 Other specified postprocedural states; Z68.35 Body mass index [BMI] 35.0-35.9, adult; Z83.3 Family history of diabetes mellitus; Z82.49 Family history of ischemic heart disease and other diseases of the circulatory system; Y83.8 Other surgical procedures as the cause of abnormal reaction of the patient, or of later complication, without mention of misadventure at the time of the procedure; Y92.89 Other specified places as the place of occurrence of the external cause
CPT/HCPCS: 36415; 37193; 80048; 85025; 85610; 85730; 99156; 99157; C1769; C1773; C1887; C1894; J0690; J1644; J2250; J3010; J7040; Q9967